=== PATIENT | female | born 1965 | race Caucasian/White ===

== ENCOUNTER 2017-11-16 13:07 | Emergency (ER) | payer OTHER, MEDICAID, SELFPAY ==
[2017-11-16 13:21] VITALS: BP 151/90; PULSE 72; RESP 16; TEMP 36.3; O2SAT 97; BMI 32.3
--- NOTE | 2017-11-16 15:14 | ED.URI ---
HPI - URI/Sore Throat <SATNAM Obrien - Last Filed: 11/16/17 22:08> General Chief Complaint: Upper Respiratory Symptoms Stated Complaint: SICK 3 DAYS, SORE THROAT AND BODY Time Seen by Provider: 11/16/17 15:14 Source: patient Mode of arrival: ambulatory Limitations: no limitations History of Present Illness HPI Narrative: 52-year-old female here for complaint of having generalized malaise for the last week with sinus pain and pressure. She states that she feels like she has a sinus infection. She denies any fevers or chills. Positive p.o. intake. She reports having greenish nasal discharge. She denies any other concerns at this point. No cough. She has been using her currently prescribed pain management regimen as needed for any discomfort. She reports she has a history of having sinus fractures in the past and that her velasquez or symptom to when that she has had before. MD Complaint: sinus pain Related Data Previous Rx's Medication Instructions Recorded levofloxacin 500 mg PO DAILY #7 tab 11/16/17 Allergies Allergy/AdvReac Type Severity Reaction Status Date / Time latex Allergy Severe Anaphylaxis Verified 11/16/17 13:24 codeine AdvReac Intermediate Vomiting Verified 11/16/17 13:24 doxycycline AdvReac Mild Vomiting Verified 11/16/17 13:24 erythromycin base AdvReac Mild Vomiting Verified 11/16/17 13:24 Penicillins AdvReac Mild Rash Verified 11/16/17 13:24 Review of Systems <SATNAM Obrien - Last Filed: 11/16/17 22:08> Constitutional Reports malaise Eyes Denies change in vision, Denies eye discharge, Denies irritation and Denies loss of vision ENT Ears, Nose, Mouth, and Throat: Reports nasal congestion and Reports sore throat Cardiovascular Denies chest pain, Denies irregular heart rhythm, Denies lightheadedness, Denies palpitations, Denies dyspnea, Denies dyspnea on exertion and Denies orthopnea Respiratory Denies cough, Denies dyspnea, Denies dyspnea on exertion and Denies wheezing Gastrointestinal Gastrointestinal: Denies abdominal pain, Denies change in bowel habits, Denies diarrhea, Denies nausea and Denies vomiting Genitourinary Denies hematuria, Denies flank pain, Denies urinary incontinence and Denies urinary urgency Musculoskeletal Denies back pain, Denies muscle weakness, Denies numbness and Denies tingling Integumentary/Breasts Denies pruritus, Denies erythema, Denies rash and Denies wounds Neurologic Denies confusion, Denies loss of vision, Denies numbness and Denies tingling Psychiatric Denies anxiety, Denies confusion, Denies depression, Denies homicidal ideation and Denies suicidal ideation Endocrine Denies palpitations Hematologic/Lymphatic Denies easy bruising Allergic/Immunologic Denies wheezing Exam <SATNAM Obrien - Last Filed: 11/16/17 22:08> Initial Vital Signs Initial Vital Signs: Vital Signs Temperature 97.3 F L 11/16/17 13:21 Pulse Rate 72 11/16/17 13:21 Respiratory Rate 16 11/16/17 13:21 Blood Pressure 151/90 H 11/16/17 13:21 Pulse Oximetry 97 11/16/17 13:21 Const General: cooperative and well developed Nutritional Appearance: well nourished Orientation: alert, awake, oriented x3 and not confused HENMT Nose: external nose normal Face and sinus: sinus tenderness maxillary Mouth: oral mucosae normal, oropharynx normal and moist mucous membranes Eyes Conjunctivae: conjunctivae normal Sclera: sclerae normal Pupils: PERRL EOM: EOM intact bilaterally Resp Effort & Inspection: normal respiratory effort, able to speak in complete sentences, no respiratory distress and no use of accessory muscles Auscultation: clear to auscultation bilaterally, no rales, no rhonchi and no wheezes Cardio Rate: regular rate Rhythm: regular rhythm Heart Sounds: no click, no gallops, no murmurs and no rubs Pulses: normal peripheral pulses Skin General: no rashes or lesions noted, No jaundice and No petechiae Neuro General: alert, oriented x3, gait normal and no focal motor deficits Speech: speech normal <Darwin Ling MD - Last Filed: 11/19/17 08:38> Initial Vital Signs Initial Vital Signs: Vital Signs Temperature 97.3 F L 11/16/17 13:21 Pulse Rate 72 11/16/17 13:21 Respiratory Rate 16 11/16/17 13:21 Blood Pressure 151/90 H 11/16/17 13:21 Pulse Oximetry 97 11/16/17 13:21 Course <SATNAM Obrien - Last Filed: 11/16/17 22:08> Vital Signs - 8 hr 11/16/17 15:38 Pulse Rate 65 Respiratory Rate 16 Blood Pressure 152/92 H Pulse Oximetry 98 <Darwin Ling MD - Last Filed: 11/19/17 08:38> Vital Signs - 8 hr 11/16/17 15:38 Pulse Rate 65 Respiratory Rate 16 Blood Pressure 152/92 H Pulse Oximetry 98 MDM - URI/Sore Throat <SATNAM Obrien - Last Filed: 11/16/17 22:08> [facility] Narrative Medical decision making narrative: Will treat for sinus infection with Levaquin as she has doxycycline and penicillin allergy. Tylenol as needed for any discomfort. Plenty of fluid and rest. Saline irrigation and nasal passages to help with congestion follow up with primary care provider in the next few days. For any worsening symptoms return emergency room. Discharge Plan Departure Patient Disposition: Home, Self-Care Clinical Impression: Sinusitis Discharge Date/Time: 11/16/17 15:42 Interventions: ED Discharge Assessment Last Done: 11/16/17 15:38 Instructions: DI for Sinusitis Activity Restrictions/Additional Instructions: Signs and symptoms presents as acute sinusitis. Use [id number] Tylenol as needed for any discomfort. Plenty of fluids and rest. Saline irrigation and nasal passages to help with congestion. Urine prescribed antibiotic called Levaquin use as directed. Follow up with her primary care provider next few days for re-evaluation. Return emergency room for any worsening symptoms. Prescriptions: New levofloxacin 500 mg tablet 500 mg PO DAILY Qty: 7 RF: 0 Referrals: Mami Ro [Primary Care Provider] - Stand Alone Forms: Work/School Restrictions <Darwin Ling MD - Last Filed: 11/19/17 08:38> Sign Out Provider Sign Out Attestation: The PA/MEDICAL HEALTH RESEARCHER functioned independently for the care of this pt, I was available, but not asked to participate in care. I am unable to determine appropriateness of management without personally examining the pt.
[2017-11-16 15:38] VITALS: BP 152/92; PULSE 65; RESP 16; O2SAT 98
== END 2017-11-16 15:42 | disposition home or self-care (01) ==
PROVIDERS: Emergency Provider Nurse Practitioner Family; PCP Internal Medicine
DX: J01.90 Acute sinusitis, unspecified (principal)
CPT/HCPCS: 99282

== ENCOUNTER 2019-01-10 11:57 | Emergency (ER) | payer OTHER, MEDICAID, SELFPAY ==
[2019-01-10 12:05] VITALS: BP 128/75; PULSE 75; RESP 16; TEMP 37; O2SAT 98
--- NOTE | 2019-01-10 12:14 | PC.NURSE ---
Addendum entered by Yoly Gray R.N. 01/10/19 12:15: wrong patient Original Note: pt ambulating to bathroom
[2019-01-10 12:24] LABS: Add Manual Diff / Slide Review NO; Basophils Absolute Auto 0 /uL (0-100); Basophils Percent Auto 0.3 % (0-2); Eosinophils Absolute Auto 100 /uL (0-450); Hematocrit 42.2 % (36-46); Hemoglobin 14.3 g/dL (12.0-16.0); Lymphocytes Absolute Auto 2200 /uL (1100-4500); Lymphocytes Percent Auto 49.6 % (25-40); Mean Corpuscular HGB Conc 33.8 % (30-36); Mean Corpuscular Volume 94.5 fL (80-100); Monocytes Absolute Auto 700 /uL (0-900); Monocytes Percent Auto 16.2 % (3-14); Neutrophils Absolute Auto 1400 /uL (1500-7000); Neutrophils Percent Auto 30.9 % (50-75); Platelet Count 181 X10^3/uL (150-400); Red Blood Cell Count 4.47 X10^6/uL (4.0-5.2); White Blood Cell Count 4.4 X10^3/uL (4.5-11.0)
[2019-01-10] MEDS: SODIUM CHLORIDE 0.9% 500 ML 1000 ML IV (12:30)
[2019-01-10 12:44] LABS: Alanine Aminotransferase 21 IU/L (9-52); Albumin 3.8 g/dL (3.5-5.0); Albumin Globulin Ratio 1.1 (1.0-2.8); Alkaline Phosphatase 57 U/L (38-126); Aspartate Aminotransferase 32 IU/L (14-36); BUN Creatinine Ratio 24.4 (6-22); Bilirubin Total 0.5 mg/dL (0.2-1.3); Blood Urea Nitrogen 22 mg/dL (7-17); Calcium 9.3 mg/dL (8.4-10.2); Carbon Dioxide 30 mmol/L (22-32); Chloride 102 mmol/L (98-107); Estimated Glomerular Filt Rate > 60.0 mL/min (>60); Globulin 3.5 g/dL (1.7-4.1); Glucose 104 mg/dL (70-100); HEMOLYSIS 16 (0-50); Potassium 3.9 mmol/L (3.4-5.1); Sodium 139 mmol/L (137-145); Total Protein 7.3 g/dL (6.3-8.2)
[2019-01-10 14:36] VITALS: BP 120/67; PULSE 65; RESP 16; O2SAT 100
--- NOTE | 2019-01-10 15:09 | ED_ITS ---
HPI - Nausea/Vomiting/Diarrhea <SATNAM Joyce - Last Filed: 01/10/19 22:48> General Chief complaint: Nausea/Vomiting/Diarrhea Stated complaint: Nausea, Low blood sugar Time Seen by Provider: 01/10/19 12:05 Source: patient and EMS Mode of arrival: Ambulatory Limitations: no limitations History of Present Illness HPI Narrative: This is a 53-year-old female, nonsmoker, who presents to ED with [facility] with hypoglycemic symptoms and the initial blood sugar of 60 mg/dL at home. Patient denies history of diabetes or being on antidiabetic medication, changes in medications, or recent illness. Patient reports she has been having frequent shakiness for a month and had purchased a blood sugar monitor and has been monitoring frequently. She actually has an appointment with her primary care physician next week to discuss about this. Patient reports her blood sugar has been running in 60-100 and has hypoglycemic symptoms such as nausea, feeling dizzy, shaky around when her blood sugar is in 70 mg/dL. Patient was given oral dextrose and IV Zofran prior arriving to ED by medics. Patient reports her symptoms all resolved at this time. She reports is currently under high stress and has not been eating well. Patient reports last meal was previous night at 4:00 p.m. and her symptoms started at 8:30 a.m. this morning. Related Data Home Medications Medication Instructions Recorded Confirmed cetirizine 10 mg PO DAILY 01/10/19 01/10/19 citalopram 40 mg PO DAILY 01/10/19 01/10/19 diazepam 5 mg PO DIRECTED 01/10/19 divalproex PO 01/10/19 epinephrine 0.3 mg IM PRN PRN 01/10/19 01/10/19 hydrocodone-acetaminophen 1 tab PO Q6H PRN 01/10/19 01/10/19 pantoprazole 40 mg PO DAILY 01/10/19 01/10/19 tramadol 50 mg PO TID PRN 01/10/19 01/10/19 Allergies Allergy/AdvReac Type Severity Reaction Status Date / Time latex Allergy Severe Anaphylaxis Verified 11/16/17 13:24 codeine AdvReac Intermediate Vomiting Verified 11/16/17 13:24 doxycycline AdvReac Mild Vomiting Verified 11/16/17 13:24 erythromycin base AdvReac Mild Vomiting Verified 11/16/17 13:24 Penicillins AdvReac Mild Rash Verified 11/16/17 13:24 Review of Systems <SATNAM Joyce - Last Filed: 01/10/19 22:48> Review of Systems Narrative: General: Denies fever, chills, fatigue, malaise, sweats. HEENT: Denies sinus pain, ear pain, sore throat, difficulty swallowing, dizziness. Respiratory: Denies dyspnea, cough, wheezing, hemoptysis, sputum. Cardiovascular: Denies chest pain, palpitations, orthopnea, edema. Gastrointestinal: Resolved nausea. Denies vomiting, abdominal pain, diarrhea, constipation, melena. : Denies dysuria, frequency, incontinence, hematuria, urinary retention. Musculoskeletal: Denies weakness, joint pain or bony pain. Skin: Denies rash, skin lesions, or other. Neurologic: Denies weakness, headache, numbness, change in speech, confusion, seizures, incoordination. Psychiatric: No concerning psychosocial issues. 12-point review of systems is negative except for those stated above. PFSH <SATNAM Joyce - Last Filed: 01/10/19 22:48> Medical History Asthma (Acute) Bipolar disorder (Acute) Fibromyalgia (Acute) Social History Smoking Status: Never smoker Social History Smoking Status: Never smoker Exam <SATNAM Joyce - Last Filed: 01/10/19 22:48> Narrative Exam Narrative: General appearance: well developed, well nourished, in no acute distress. Head: normocephalic, atraumatic, no scalp lesions, non-tender. Eye: pupil equal, round. EOMI. Nose: nares patent. Oral: mucosa moist. Neck/Thyroid: neck supple, full range of motion, no visible masses. Skin: no suspicious rashes, lesions over visible areas. Warm and dry. Heart: no clubbing, no cyanosis, no edema. Lungs: Breathing even and unlabored. No stridor. No accessory muscles used. Chest: normal shape and expansion. Abdomen: non-obese, non-distended. Neurologic: alert and oriented. Cognitive exam, BLOOD BANK TECHNOLOGIST and PNS grossly intact on informal exam. Psych: good eye contact, normal affect. Initial Vital Signs Initial Vital Signs: Vital Signs Temperature 98.6 F 01/10/19 12:05 Pulse Rate 75 01/10/19 12:05 Respiratory Rate 16 01/10/19 12:05 Blood Pressure 128/75 01/10/19 12:05 Pulse Oximetry 98 01/10/19 12:05 <Darrell Bearden DO - Last Filed: 01/18/19 00:05> Initial Vital Signs Initial Vital Signs: Vital Signs Temperature 98.6 F 01/10/19 12:05 Pulse Rate 75 01/10/19 12:05 Respiratory Rate 16 01/10/19 12:05 Blood Pressure 128/75 01/10/19 12:05 Pulse Oximetry 98 01/10/19 12:05 Scores <SATNAM Joyce - Last Filed: 01/10/19 22:48> GCS Rasheed coma scale eye opening: Spontaneous Rasheed coma scale verbal response: Orientated Bruin coma scale motor response: Obey commands Bruin coma scale total score: 15 Course <SATNAM Joyce - Last Filed: 01/10/19 22:48> Orders Ordered: Discontinued Medications Sodium Chloride (Normal Saline 0.9%) 500 mls @ 1,000 mls/hr IV BOLUS ONE Stop: 01/10/19 12:46 Last Infusion: 01/10/19 13:17 Dose: 0 mls/hr [facility] Admin: 01/10/19 12:30 Dose: 1,000 mls/hr Documented by: [facility] Vital Signs Vital signs: Vital Signs - 8 hr 01/10/19 14:36 Pulse Rate 65 Respiratory Rate 16 Blood Pressure [Right Arm] 120/67 Pulse Oximetry 100 <DO Ethan Redding Last Filed: 01/18/19 00:05> Orders Ordered: Discontinued Medications Sodium Chloride (Normal Saline 0.9%) 500 mls @ 1,000 mls/hr IV BOLUS ONE Stop: 01/10/19 12:46 Last Infusion: 01/10/19 13:17 Dose: 0 mls/hr [facility] Admin: 01/10/19 12:30 Dose: 1,000 mls/hr Documented by: HFARRINGTO Vital Signs Vital signs: Vital Signs - 8 hr 01/10/19 14:36 Pulse Rate 65 Respiratory Rate 16 Blood Pressure [Right Arm] 120/67 Pulse Oximetry 100 MDM - Nausea/Vomiting/Diarrhea <Iftikhar Luis Enrique-YASSINE AquinoP - Last Filed: 01/10/19 22:48> Differential Diagnosis Differential diagnosis: Likely dehydration and other (Hypoglycemia) Medical Records Attestation: I reviewed the patient's medical records. Lab Data Attestation: I reviewed the patient's lab results. Result diagrams: 01/10/19 11:45 01/10/19 11:45 Labs: Lab Results 01/10/19 01/10/19 Range/Units 11:45 11:45 WBC 4.4 L (4.5-11.0) X10^3/uL RBC 4.47 (4.0-5.2) X10^6/uL Hgb 14.3 (12.0-16.0) g/dL Hct 42.2 (36-46) % MCV 94.5 (80-100) fL MCH 32.0 (26-34) PG MCHC 33.8 (30-36) % RDW 15.0 H (11.6-14.8) % Plt Count 181 (150-400) X10^3/uL Neut % (Auto) 30.9 L (50-75) % Lymph % (Auto) 49.6 H (25-40) % Tyrrell % (Auto) 16.2 H (3-14) % Eos % (Auto) 3.0 (2-4) % Baso % (Auto) 0.3 (0-2) % Neut # (Auto) 1400 L (9846-0320) /uL Lymph # (Auto) 2200 (6851-7481) /uL Tyrrell # (Auto) 700 (0-900) /uL Eos # (Auto) 100 (0-450) /uL Baso # (Auto) 0 (0-100) /uL Sodium 139 (137-145) mmol/L Potassium 3.9 (3.4-5.1) mmol/L Chloride 102 (98-107) mmol/L Carbon Dioxide 30 (22-32) mmol/L BUN 22 H (7-17) mg/dL Creatinine 0.90 (0.52-1.04) mg/dL Estimated GFR > 60.0 (>60) mL/min BUN/Creatinine Ratio 24.4 H (6-22) Glucose 104 H (70-100) mg/dL Calcium 9.3 (8.4-10.2) mg/dL Total Bilirubin 0.5 (0.2-1.3) mg/dL AST 32 (14-36) IU/L ALT 21 (9-52) IU/L Alkaline Phosphatase 57 (38-126) U/L Total Protein 7.3 (6.3-8.2) g/dL Albumin 3.8 (3.5-5.0) g/dL Globulin 3.5 (1.7-4.1) g/dL Albumin/Globulin Ratio 1.1 (1.0-2.8) Point of Care Testing Glucose POC 107 Urine Dip Bedside Urine Glucose 100 mg/dl Bedside Urine Bilirubin - Negative Bedside Urine Ketone +/- 5 Urine Specific [place] 1.020 Bedside Urine Occult Blood - Negative Bedside Urine pH 6.0 Bedside Urine Protein +/- 15 Bedside Urine Urobilinogen 1+ 2mg Bedside Urine Nitrite - Negative Bedside Urine Leukocytes - Negative Esterase ECG Data Attestation: I personally reviewed and interpreted this ECG as follows: Prior ECG tracings: not available for review Interpretation: Sinus Rhythm rate at 70. Low QRS voltage in precordial leads. Nonspecific ST and T-wave abnormality MDM Narrative Medical decision making narrative: This is a 53-year-old female who was brought in by [facility] paramedics with symptoms of hypoglycemia. Patient had used her home glucose monitor and fingerstick glucose as 60 mg/dL. Patient reports unintentional intermittent fasting for greater than 16 hours since last night when she had symptoms of shakiness, nausea and vomiting. Patient does not have known history of diabetes or hyperglycemia. She denies recent illness. She denies recent changes in her medications. She has history of bipolar and fibromyalgia and she is on several medications for these. She reports last 1 month or so she has been having hypoglycemic symptoms such as shakiness which triggered her to purchase a glucometer. She has a follow-up appointment with her primary care physician next week to discuss this and she has been keeping a log book for glucose. Patient has been tolerating p.o. foods and fluids after Zofran for nausea and she was able to keep her blood sugar >100 mg/dL and symptoms free. BUN was mildly elevated and patient was medicated with 1 L of normal saline while in ED. Patient did not have any leukocytosis and otherwise lab tests were unremarkable. Urine test did not exhibit for an infection. Patient advised to check her blood glucose if she feels hypoglycemic symptoms and have orange juice or juice and added sugar for quick fix for hyperglycemia. Then, added complex carbohydrate such as crackers, milk, cheese to keep glucose prolonged time and patient verbalized the understanding. Patient advised to keep her appointment with primary care physician as scheduled and return precautions were discussed with the patient and verbalized understand. Patient advised to have frequent small snacks and to avoid prolonged fasting. Patient agrees with treatment plan. <Darrell Bearden, - Last Filed: 01/18/19 00:05> Lab Data Labs: Lab Results 01/10/19 01/10/19 Range/Units 11:45 11:45 WBC 4.4 L (4.5-11.0) X10^3/uL RBC 4.47 (4.0-5.2) X10^6/uL Hgb 14.3 (12.0-16.0) g/dL Hct 42.2 (36-46) % MCV 94.5 (80-100) fL MCH 32.0 (26-34) PG MCHC 33.8 (30-36) % RDW 15.0 H (11.6-14.8) % Plt Count 181 (150-400) X10^3/uL Neut % (Auto) 30.9 L (50-75) % Lymph % (Auto) 49.6 H (25-40) % Tyrrell % (Auto) 16.2 H (3-14) % Eos % (Auto) 3.0 (2-4) % Baso % (Auto) 0.3 (0-2) % Neut # (Auto) 1400 L (6239-1760) /uL Lymph # (Auto) 2200 (5223-6530) /uL Tyrrell # (Auto) 700 (0-900) /uL Eos # (Auto) 100 (0-450) /uL Baso # (Auto) 0 (0-100) /uL Sodium 139 (137-145) mmol/L Potassium 3.9 (3.4-5.1) mmol/L Chloride 102 (98-107) mmol/L Carbon Dioxide 30 (22-32) mmol/L BUN 22 H (7-17) mg/dL Creatinine 0.90 (0.52-1.04) mg/dL Estimated GFR > 60.0 (>60) mL/min BUN/Creatinine Ratio 24.4 H (6-22) Glucose 104 H (70-100) mg/dL Calcium 9.3 (8.4-10.2) mg/dL Total Bilirubin 0.5 (0.2-1.3) mg/dL AST 32 (14-36) IU/L ALT 21 (9-52) IU/L Alkaline Phosphatase 57 (38-126) U/L Total Protein 7.3 (6.3-8.2) g/dL Albumin 3.8 (3.5-5.0) g/dL Globulin 3.5 (1.7-4.1) g/dL Albumin/Globulin Ratio 1.1 (1.0-2.8) Point of Care Testing Glucose POC 107 Urine Dip Bedside Urine Glucose 100 mg/dl Bedside Urine Bilirubin - Negative Bedside Urine Ketone +/- 5 Urine Specific [place] 1.020 Bedside Urine Occult Blood - Negative Bedside Urine pH 6.0 Bedside Urine Protein +/- 15 Bedside Urine Urobilinogen 1+ 2mg Bedside Urine Nitrite - Negative Bedside Urine Leukocytes - Negative Esterase Discharge Plan Departure Patient Disposition: Home Clinical Impression: Hypoglycemia Discharge Date/Time: 01/10/19 15:15 Instructions: DI for Hypoglycemia Activity Restrictions/Additional Instructions: You have been diagnosed with [hypoglycemia. Your initial blood glucose by EMS was 60 mg/dL with a hypoglycemic symptoms you had experienced. The lab tests today were unremarkable. Please have something to snack readily available with the you when you have hypoglycemic symptoms. This might have happened due to prolonged intermittent fasting for about 16 hours plus]. What to do: *Take your medications as directed. There is no new medications to go home with today. *Follow up with your primary care provider in 2-3 days, call for an appointment with the glucose monitor log at home. Let them know you were seen in the ED and that we asked you to be seen in follow up. *Return to ED if you have any new, worsening, or concerning symptoms, such as [chest pain, breathing difficulty, unable to tolerate fluids, fever, dizziness, or any acute concerns]. Prescriptions: No Action citalopram 40 mg tablet 40 mg PO DAILY RF: 0 cetirizine 10 mg tablet 10 mg PO DAILY RF: 0 hydrocodone-acetaminophen 5-325 mg tablet 1 tab PO Q6H PRN (Reason: pain) RF: 0 tramadol 50 mg tablet 50 mg PO TID PRN (Reason: pain) RF: 0 pantoprazole 40 mg tablet,delayed release (DR/EC) 40 mg PO DAILY RF: 0 divalproex 500 mg tablet extended release 24 hr PO RF: 0 epinephrine 0.3 mg/0.3 mL auto-injector 0.3 mg IM PRN PRN (Reason: Allergic Reaction) RF: 0 diazepam 5 mg tablet 5 mg PO DIRECTED RF: 0 Referrals: Mami Ro [Primary Care Provider] - <Darrell Bearden DO - Last Filed: 01/18/19 00:05> Sign Out Provider Sign Out Attestation: I was available for consultation during this patient's emergency department encounter
== END 2019-01-10 15:15 | disposition home or self-care (01) ==
PROVIDERS: Emergency Provider Nurse Practitioner Family; PCP Internal Medicine
DX: E16.2 Hypoglycemia, unspecified (principal)
CPT/HCPCS: 80053; 81003; 82962; 85025; 93005; 93010; 96360; 99283; 99284

== ENCOUNTER 2019-02-14 06:23 | Inpatient (IN) | payer OTHER, MEDICAID, SELFPAY ==
[2019-02-14] VITALS (11 sets, daily range): BP systolic 133–155; BP diastolic 71–86; PULSE 64–91; RESP 15–20; TEMP 36.4–37.3; O2SAT 95–998; BMI 31.8
--- NOTE | 2019-02-14 06:39 | ED_ITS ---
HPI - Abdominal Pain <Pauline Sana, DO - Last Filed: 02/20/19 07:11> General Chief Complaint: Abdominal Pain Stated Complaint: right side abdomen pain up into chest Time Seen by Provider: 02/14/19 06:34 Source: patient Mode of arrival: Ambulatory Limitations: no limitations History of Present Illness HPI narrative: Patient is a 53-year-old female who presents with right upper quadrant pain ongoing for the last 36 hours. She says it has progressively gotten worse he finally just told her about it. She has been nauseous no vomiting. She tried to eat a handful of Cheetos at 4:00 a.m. and that seemed to have made it worse. She denies any radiating pain there are she denies chest pain or shortness of breath. She has been taking hydrocodone and tramadol at home for pain but it has not been helping. MD complaint: abdominal pain Onset (ago): hour(s) (36) Pain Consistency: intermittent Location: RUQ Severity: severe Quality: stabbing Radiation: none Migration to: no migration Relieving factors: nothing Exacerbating factors: nothing Related Data Home Medications Medication Instructions Recorded Confirmed cetirizine 10 mg PO DAILY 01/10/19 02/14/19 citalopram 40 mg PO QPM 01/10/19 02/14/19 diazepam 5 mg PO BID PRN 01/10/19 02/14/19 divalproex 2,000 mg PO QPM 01/10/19 02/14/19 epinephrine 0.3 mg IM PRN PRN 01/10/19 02/14/19 pantoprazole 40 mg PO DAILY 01/10/19 02/14/19 tramadol 50 mg PO TID PRN 01/10/19 02/14/19 lisinopril 10 mg PO QPM 02/14/19 02/14/19 naproxen 500 mg PO BID PRN 02/14/19 02/14/19 potassium chloride 10 meq PO DAILY 02/14/19 02/14/19 simvastatin 5 mg PO QPM 02/14/19 02/14/19 Previous Rx's Medication Instructions Recorded hydrocodone-acetaminophen 1 tab PO BID PRN #7 tab 02/16/19 ondansetron 4 mg PO Q8H PRN #10 tab 02/16/19 Allergies Allergy/AdvReac Type Severity Reaction Status Date / Time latex Allergy Severe Anaphylaxis Verified 11/16/17 13:24 codeine AdvReac Intermediate Vomiting Verified 11/16/17 13:24 doxycycline AdvReac Mild Vomiting Verified 11/16/17 13:24 erythromycin base AdvReac Mild Vomiting Verified 11/16/17 13:24 Penicillins AdvReac Mild Rash Verified 11/16/17 13:24 Review of Systems <Pauline Hood DO - Last Filed: 02/20/19 07:11> Review of Systems Narrative: GENERAL: Denies chills, fatigue, malaise, fever, sweats, travel HEENT: Denies sinus pain, ear pain, sore throat, difficulty swallowing, neck pain RESPIRATORY: Denies dyspnea, cough, wheezing, hemoptysis, sputum. CARDIOVASCULAR: Denies chest pain, palpitations, orthopnea, edema GASTROINTESTINAL: See HPI : Denies dysuria, frequency, incontinence, hematuria, urinary retention, flank pain. MUSCULOSKELETAL: Denies weakness, joint pain, or bony pain SKIN: No rash, no erythema, no pruritus NEUROLOGIC: Denies weakness, dizziness, headache, numbness, change in speech, confusion PSYCHIATRIC: No concerning psychosocial issues. 12 point review of systems is negative except for those stated above and HPI Patient History <Pauline Hood DO - Last Filed: 02/20/19 07:11> Medical History (Updated 02/14/19 @ 14:28 by Edith Costa DO) Anaphylaxis (Acute) Asthma (Acute) Bipolar disorder (Acute) Fibromyalgia (Acute) GERD (gastroesophageal reflux disease) (Acute) Gestational diabetes (Acute) Hyperlipidemia (Acute) Hypertension (Acute) Hypoglycemia (Acute) Hypokalemia (Acute) Panic attacks (Acute) Seasonal allergies (Acute) Surgical History (Updated 02/14/19 @ 14:24 by Edith Costa DO) H/O rhinoplasty (Acute) H/O: hysterectomy (Acute) History of lumpectomy of right breast (Acute) Hx of tonsillectomy (Acute) S/P ACL repair (Acute) Family History (Updated 02/14/19 @ 14:25 by Edith Costa DO) Mother Aspiration pneumonia Throat cancer Father Congestive heart failure Social History household members: spouse and children Smoking Status: Never smoker alcohol intake: current alcohol intake frequency: other Substance Use Type: does not use Exam <Pauline Hood DO - Last Filed: 02/20/19 07:11> Initial Vital Signs Initial Vital Signs: Vital Signs Temperature 99.2 F 02/14/19 06:37 Pulse Rate 86 02/14/19 06:37 Respiratory Rate 20 02/14/19 06:37 Blood Pressure 146/81 H 02/14/19 06:37 Pulse Oximetry 98 02/14/19 06:37 GENERAL: Middle-aged female appears in moderate distress HEENT: Head atraumatic,EOMI, pupils reactive, face symmetric, moist mucous membranes CARDIOVASCULAR: Regular rate and rhythm without murmurs, rubs or gallops. RESPIRATORY: Breath sounds equal bilaterally, no wheezes rales or rhonchi. ABDOMEN: Soft, tender right upper quadrant no guarding or rebound positive Reyes sign mild epigastric pain : No CVA tenderness EXTREMITIES: Normal range of motion, no clubbing or edema. Neurovascularly intact NEUROLOGICAL: Alert and oriented x4.Normal gait and speech. SKIN: Warm, dry, no laceration, no petechiae, no rashes or lesions. <Liyah Saul, DO - Last Filed: 02/14/19 18:11> Initial Vital Signs Initial Vital Signs: Vital Signs Temperature 99.2 F 02/14/19 06:37 Pulse Rate 86 02/14/19 06:37 Respiratory Rate 20 02/14/19 06:37 Blood Pressure 146/81 H 02/14/19 06:37 Pulse Oximetry 98 02/14/19 06:37 Course <Pauline Hood DO - Last Filed: 02/20/19 07:11> Orders Ordered: Discontinued Medications Acetaminophen (Tylenol) 650 mg PO Q6HR PRN PRN Reason: As Needed for Fever/Mild Pain Last Admin: 02/16/19 07:57 Dose: 650 mg Documented by: Admin: 02/15/19 23:32 Dose: 650 mg Documented by: Admin: 02/15/19 16:53 Dose: 650 mg Documented by: MOISE Hydrocodone Bitart/Acetaminophen ([place] 5/325) 0.5 tab PO NOW ONE Stop: 02/16/19 09:42 Last Admin: 02/16/19 10:01 Dose: 0.5 tab Documented by: NCANNIF Bisacodyl (Dulcolax) 10 mg PO DAILY PRN PRN Reason: Constipation Bisacodyl (Dulcolax) 10 mg [place] DAILY PRN PRN Reason: Constipation Citalopram Hydrobromide (Celexa) 40 mg PO QPM [facility] Last Admin: 02/15/19 16:54 Dose: 40 mg Documented by: MOISE Divalproex Sodium (Depakote) 2,000 mg PO QPM [facility] Last Admin: 02/15/19 16:53 Dose: 2,000 mg Documented by: MOISE Docusate Sodium (Colace) 100 mg PO BID PRN PRN Reason: Constipation Heparin Sodium (Porcine) (Heparin) 5,000 unit SUBCUT BID [facility] Last Admin: 02/14/19 10:35 Dose: Not Given Documented by: ROXANA Heparin Sodium (Porcine) (Heparin) 5,000 unit SUBCUT BID [facility] Last Admin: 02/16/19 10:10 Dose: Not Given Documented by: Admin: 02/15/19 20:48 Dose: 5,000 unit Documented by: Admin: 02/15/19 08:08 Dose: 5,000 unit Documented by: Admin: 02/14/19 20:50 Dose: 5,000 unit Documented by: MOISE Hydromorphone HCl (Dilaudid) 0.5 mg IV Q6H PRN PRN Reason: Pain, Severe (7-10) Hydromorphone HCl (Dilaudid) 0.5 mg IV Q6H PRN PRN Reason: Pain, Severe (7-10) Last Admin: 02/15/19 07:00 Dose: 0.5 mg Documented by: Admin: 02/14/19 23:42 Dose: 0.5 mg Documented by: LISA Sodium Chloride (Normal Saline 0.9%) 1,000 mls @ 150 mls/hr IV CONT [facility] Last Infusion: 02/14/19 08:37 Dose: 0 mls/hr Documented by: Infusion: 02/14/19 07:30 Dose: 999 mls/hr Documented by: Admin: 02/14/19 06:57 Dose: 150 mls/hr Documented by: LANE Sodium Chloride (Normal Saline 0.9%) 1,000 mls @ 100 mls/hr IV CONT [facility] Sodium Chloride (Normal Saline 0.9%) 1,000 mls @ 150 mls/hr IV CONT [facility] Last Admin: 02/14/19 11:10 Dose: 150 mls/hr Documented by: ILIABONKat Dextrose/Sodium Chloride (Dextrose 5%-0.9% Ns) 1,000 mls @ 150 mls/hr IV CONT [facility] Last Infusion: 02/15/19 09:02 Dose: 0 mls/hr Documented by: Admin: 02/15/19 03:12 Dose: 150 mls/hr Documented by: Infusion: 02/15/19 03:12 Dose: 150 mls/hr Documented by: Admin: 02/14/19 20:38 Dose: 150 mls/hr Documented by: Infusion: 02/14/19 20:33 Dose: 150 mls/hr Documented by: Admin: 02/14/19 13:52 Dose: 150 mls/hr Documented by: ILIABONKat Sodium Chloride (Normal Saline 0.9%) 1,000 mls @ 125 mls/hr IV CONT [facility] Last Infusion: 02/16/19 09:28 Dose: 0 mls/hr Documented by: Admin: 02/16/19 01:09 PDT Dose: 125 mls/hr Documented by: Infusion: 02/16/19 00:54 Dose: 125 mls/hr Documented by: Admin: 02/15/19 16:54 Dose: 125 mls/hr Documented by: Infusion: 02/15/19 16:54 Dose: 125 mls/hr Documented by: Admin: 02/15/19 09:01 Dose: 125 mls/hr Documented by: KENNA Ketorolac Tromethamine (Toradol) 30 mg IV NOW ONE Stop: 02/14/19 06:39 Last Admin: 02/14/19 06:57 Dose: 30 mg Documented by: LANE Lisinopril (Zestril) 10 mg PO QPM [facility] Last Admin: 02/15/19 16:53 Dose: 10 mg Documented by: MOISE Loratadine (Claritin) 10 mg PO DAILY [facility] Last Admin: 02/16/19 07:57 Dose: Not Given Documented by: Admin: 02/15/19 14:08 Dose: Not Given Documented by: ACHESS Magnesium Hydroxide (Milk Of Magnesia) 30 ml PO DAILY PRN PRN Reason: Constipation Magnesium Hydroxide (Milk Of Magnesia) 30 ml PO DAILY PRN PRN Reason: Constipation Melatonin (Melatonin) 3 mg PO BEDTIME [facility] Last Admin: 02/15/19 20:49 Dose: 3 mg Documented by: Admin: 02/15/19 00:05 Dose: 3 mg Documented by: LISA Morphine Sulfate (Morphine) 2 mg IV Q4HR PRN PRN Reason: Pain, Moderate (4-6) Morphine Sulfate (Morphine) 2 mg IV Q4HR PRN PRN Reason: Pain, Moderate (4-6) Last Admin: 02/16/19 04:17 Dose: 2 mg Documented by: Admin: 02/16/19 01:26 PST Dose: 2 mg Documented by: Admin: 02/15/19 16:52 Dose: 2 mg Documented by: Admin: 02/14/19 20:52 Dose: 2 mg Documented by: Admin: 02/14/19 17:07 Dose: 2 mg Documented by: Admin: 02/14/19 11:10 Dose: 2 mg Documented by: ROXANA Morphine Sulfate (Morphine) 2 mg IV NOW ONE Stop: 02/14/19 12:40 Last Admin: 02/14/19 12:44 Dose: 2 mg Documented by: ROXANA Morphine Sulfate (Morphine) 1 mg IV Q4HR PRN PRN Reason: Pain, Moderate (4-6) Last Admin: 02/15/19 20:48 Dose: 1 mg Documented by: Admin: 02/15/19 11:41 Dose: 1 mg Documented by: Admin: 02/14/19 19:37 Dose: 1 mg Documented by: MOISE Ondansetron HCl (Zofran) 4 mg IV NOW ONE Stop: 02/14/19 06:39 Last Admin: 02/14/19 06:57 Dose: 4 mg Documented by: LANE Ondansetron HCl (Zofran) 4 mg IV Q4HR PRN PRN Reason: Nausea And Vomiting Ondansetron HCl (Zofran) 4 mg IV Q4HR PRN PRN Reason: Nausea And Vomiting Last Admin: 02/16/19 08:55 Dose: 4 mg Documented by: Admin: 02/16/19 03:35 Dose: 4 mg Documented by: Admin: 02/15/19 16:52 Dose: 4 mg Documented by: Admin: 02/14/19 20:51 Dose: 4 mg Documented by: Admin: 02/14/19 15:42 Dose: 4 mg Documented by: MOISE Pantoprazole Sodium (Protonix) 40 mg IV DAILY [facility] Last Admin: 02/15/19 08:07 Dose: 40 mg Documented by: KENNA Pantoprazole Sodium (Protonix) 40 mg PO 0700 [facility] Last Admin: 02/16/19 04:16 Dose: 40 mg Documented by: Admin: 02/15/19 08:59 Dose: Not Given Documented by: KENNA Polyethylene Glycol (Miralax) 17 gm PO DAILY PRN PRN Reason: Constipation Simvastatin (Zocor) 5 mg PO QPM [facility] Last Admin: 02/15/19 16:55 Dose: 5 mg Documented by: MOISE Sodium Chloride (Normal Saline 0.9% Flush) 10 ml IV PRN PRN PRN Reason: Flush Last Admin: 02/15/19 16:58 Dose: 10 ml Documented by: Admin: 02/15/19 16:52 Dose: 10 ml Documented by: Admin: 02/15/19 08:07 Dose: 10 ml Documented by: Admin: 02/14/19 20:45 Dose: 10 ml Documented by: Admin: 02/14/19 18:44 Dose: 10 ml Documented by: MOISE Vital Signs Vital signs: Vital Signs - 8 hr 02/14/19 06:37 Temperature 99.2 F Pulse Rate 86 Respiratory Rate 20 Blood Pressure 146/81 H Pulse Oximetry 98 <Liyah Saul DO - Last Filed: 02/14/19 18:11> Orders Ordered: Discontinued Medications Acetaminophen (Tylenol) 650 mg PO Q6HR PRN PRN Reason: As Needed for Fever/Mild Pain Last Admin: 02/16/19 07:57 Dose: 650 mg Documented by: Admin: 02/15/19 23:32 Dose: 650 mg Documented by: Admin: 02/15/19 16:53 Dose: 650 mg Documented by: MOISE Hydrocodone Bitart/Acetaminophen ([place] 5/325) 0.5 tab PO NOW ONE Stop: 02/16/19 09:42 Last Admin: 02/16/19 10:01 Dose: 0.5 tab Documented by: KRISTINA Bisacodyl (Dulcolax) 10 mg PO DAILY PRN PRN Reason: Constipation Bisacodyl (Dulcolax) 10 mg [place] DAILY PRN PRN Reason: Constipation Citalopram Hydrobromide (Celexa) 40 mg PO QPM [facility] Last Admin: 02/15/19 16:54 Dose: 40 mg Documented by: MOISE Divalproex Sodium (Depakote) 2,000 mg PO QPM [facility] Last Admin: 02/15/19 16:53 Dose: 2,000 mg Documented by: MOISE Docusate Sodium (Colace) 100 mg PO BID PRN PRN Reason: Constipation Heparin Sodium (Porcine) (Heparin) 5,000 unit SUBCUT BID [facility] Last Admin: 02/14/19 10:35 Dose: Not Given Documented by: ROXANA Heparin Sodium (Porcine) (Heparin) 5,000 unit SUBCUT BID [facility] Last Admin: 02/16/19 10:10 Dose: Not Given Documented by: Admin: 02/15/19 20:48 Dose: 5,000 unit Documented by: Admin: 02/15/19 08:08 Dose: 5,000 unit Documented by: Admin: 02/14/19 20:50 Dose: 5,000 unit Documented by: MOISE Hydromorphone HCl (Dilaudid) 0.5 mg IV Q6H PRN PRN Reason: Pain, Severe (7-10) Hydromorphone HCl (Dilaudid) 0.5 mg IV Q6H PRN PRN Reason: Pain, Severe (7-10) Last Admin: 02/15/19 07:00 Dose: 0.5 mg Documented by: Admin: 02/14/19 23:42 Dose: 0.5 mg Documented by: LISA Sodium Chloride (Normal Saline 0.9%) 1,000 mls @ 150 mls/hr IV CONT [facility] Last Infusion: 02/14/19 08:37 Dose: 0 mls/hr Documented by: Infusion: 02/14/19 07:30 Dose: 999 mls/hr Documented by: Admin: 02/14/19 06:57 Dose: 150 mls/hr Documented by: LANE Sodium Chloride (Normal Saline 0.9%) 1,000 mls @ 100 mls/hr IV CONT [facility] Sodium Chloride (Normal Saline 0.9%) 1,000 mls @ 150 mls/hr IV CONT [facility] Last Admin: 02/14/19 11:10 Dose: 150 mls/hr Documented by: SPABONA Dextrose/Sodium Chloride (Dextrose 5%-0.9% Ns) 1,000 mls @ 150 mls/hr IV CONT [facility] Last Infusion: 02/15/19 09:02 Dose: 0 mls/hr Documented by: Admin: 02/15/19 03:12 Dose: 150 mls/hr Documented by: Infusion: 02/15/19 03:12 Dose: 150 mls/hr Documented by: Admin: 02/14/19 20:38 Dose: 150 mls/hr Documented by: Infusion: 02/14/19 20:33 Dose: 150 mls/hr Documented by: Admin: 02/14/19 13:52 Dose: 150 mls/hr Documented by: SPABONA Sodium Chloride (Normal Saline 0.9%) 1,000 mls @ 125 mls/hr IV CONT [facility] Last Infusion: 02/16/19 09:28 Dose: 0 mls/hr Documented by: Admin: 02/16/19 01:09 PDT Dose: 125 mls/hr Documented by: Infusion: 02/16/19 00:54 Dose: 125 mls/hr Documented by: Admin: 02/15/19 16:54 Dose: 125 mls/hr Documented by: Infusion: 02/15/19 16:54 Dose: 125 mls/hr Documented by: Admin: 02/15/19 09:01 Dose: 125 mls/hr Documented by: KENNA Ketorolac Tromethamine (Toradol) 30 mg IV NOW ONE Stop: 02/14/19 06:39 Last Admin: 02/14/19 06:57 Dose: 30 mg Documented by: LANE Lisinopril (Zestril) 10 mg PO QPM [facility] Last Admin: 02/15/19 16:53 Dose: 10 mg Documented by: MOISE Loratadine (Claritin) 10 mg PO DAILY [facility] Last Admin: 02/16/19 07:57 Dose: Not Given Documented by: Admin: 02/15/19 14:08 Dose: Not Given Documented by: ACHESS Magnesium Hydroxide (Milk Of Magnesia) 30 ml PO DAILY PRN PRN Reason: Constipation Magnesium Hydroxide (Milk Of Magnesia) 30 ml PO DAILY PRN PRN Reason: Constipation Melatonin (Melatonin) 3 mg PO BEDTIME [facility] Last Admin: 02/15/19 20:49 Dose: 3 mg Documented by: Admin: 02/15/19 00:05 Dose: 3 mg Documented by: LISA Morphine Sulfate (Morphine) 2 mg IV Q4HR PRN PRN Reason: Pain, Moderate (4-6) Morphine Sulfate (Morphine) 2 mg IV Q4HR PRN PRN Reason: Pain, Moderate (4-6) Last Admin: 02/16/19 04:17 Dose: 2 mg Documented by: Admin: 02/16/19 01:26 PST Dose: 2 mg Documented by: Admin: 02/15/19 16:52 Dose: 2 mg Documented by: Admin: 02/14/19 20:52 Dose: 2 mg Documented by: Admin: 02/14/19 17:07 Dose: 2 mg Documented by: Admin: 02/14/19 11:10 Dose: 2 mg Documented by: ROXANA Morphine Sulfate (Morphine) 2 mg IV NOW ONE Stop: 02/14/19 12:40 Last Admin: 02/14/19 12:44 Dose: 2 mg Documented by: ROXANA Morphine Sulfate (Morphine) 1 mg IV Q4HR PRN PRN Reason: Pain, Moderate (4-6) Last Admin: 02/15/19 20:48 Dose: 1 mg Documented by: Admin: 02/15/19 11:41 Dose: 1 mg Documented by: Admin: 02/14/19 19:37 Dose: 1 mg Documented by: MOISE Ondansetron HCl (Zofran) 4 mg IV NOW ONE Stop: 02/14/19 06:39 Last Admin: 02/14/19 06:57 Dose: 4 mg Documented by: LANE Ondansetron HCl (Zofran) 4 mg IV Q4HR PRN PRN Reason: Nausea And Vomiting Ondansetron HCl (Zofran) 4 mg IV Q4HR PRN PRN Reason: Nausea And Vomiting Last Admin: 02/16/19 08:55 Dose: 4 mg Documented by: Admin: 02/16/19 03:35 Dose: 4 mg Documented by: Admin: 02/15/19 16:52 Dose: 4 mg Documented by: Admin: 02/14/19 20:51 Dose: 4 mg Documented by: Admin: 02/14/19 15:42 Dose: 4 mg Documented by: MOISE Pantoprazole Sodium (Protonix) 40 mg IV DAILY [facility] Last Admin: 02/15/19 08:07 Dose: 40 mg Documented by: KENNA Pantoprazole Sodium (Protonix) 40 mg PO 0700 [facility] Last Admin: 02/16/19 04:16 Dose: 40 mg Documented by: Admin: 02/15/19 08:59 Dose: Not Given Documented by: KENNA Polyethylene Glycol (Miralax) 17 gm PO DAILY PRN PRN Reason: Constipation Simvastatin (Zocor) 5 mg PO QPM [facility] Last Admin: 02/15/19 16:55 Dose: 5 mg Documented by: MOISE Sodium Chloride (Normal Saline 0.9% Flush) 10 ml IV PRN PRN PRN Reason: Flush Last Admin: 02/15/19 16:58 Dose: 10 ml Documented by: Admin: 02/15/19 16:52 Dose: 10 ml Documented by: Admin: 02/15/19 08:07 Dose: 10 ml Documented by: Admin: 02/14/19 20:45 Dose: 10 ml Documented by: Admin: 02/14/19 18:44 Dose: 10 ml Documented by: MOISE Vital Signs Vital signs: Vital Signs - 8 hr 02/14/19 06:37 Temperature 99.2 F Pulse Rate 86 Respiratory Rate 20 Blood Pressure 146/81 H Pulse Oximetry 98 MDM - Abdominal Pain <Pauline Hood DO - Last Filed: 02/20/19 07:11> Lab Data Result diagrams: 02/16/19 04:58 02/15/19 05:08 Labs: Lab Results 02/14/19 02/14/19 02/14/19 Range/Units 06:50 06:50 06:50 WBC 9.1 (4.5-11.0) X10^3/uL RBC 4.38 (4.0-5.2) X10^6/uL Hgb 14.3 (12.0-16.0) g/dL Hct 42.7 (36-46) % MCV 97.3 (80-100) fL MCH 32.5 (26-34) PG MCHC 33.4 (30-36) % RDW 13.4 (11.6-14.8) % Plt Count 173 (150-400) X10^3/uL Neut % (Auto) 62.8 (50-75) % Lymph % (Auto) 23.5 L (25-40) % [place] % (Auto) 11.5 (3-14) % Eos % (Auto) 2.1 (2-4) % Baso % (Auto) 0.1 (0-2) % Neut # (Auto) 5700 (2563-9552) /uL Lymph # (Auto) 2100 (7380-6078) /uL [place] # (Auto) 1000 H (0-900) /uL Eos # (Auto) 200 (0-450) /uL Baso # (Auto) 0 (0-100) /uL Sodium 140 (137-145) mmol/L Potassium 4.0 (3.4-5.1) mmol/L Chloride 100 (98-107) mmol/L Carbon Dioxide 31 (22-32) mmol/L BUN 19 H (7-17) mg/dL Creatinine 0.80 (0.52-1.04) mg/dL Estimated GFR > 60.0 (>60) mL/min BUN/Creatinine Ratio 23.8 H (6-22) Glucose 86 (70-100) mg/dL Calcium 8.6 (8.4-10.2) mg/dL Magnesium 1.9 (1.6-2.3) mg/dL Total Bilirubin 0.7 (0.2-1.3) mg/dL AST 34 (14-36) IU/L ALT 14 (<35) IU/L Alkaline Phosphatase 52 (38-126) U/L Total Protein 7.1 (6.3-8.2) g/dL Albumin 3.8 (3.5-5.0) g/dL Globulin 3.3 (1.7-4.1) g/dL Albumin/Globulin Ratio 1.2 (1.0-2.8) Triglycerides 100 (35-150) mg/dL Cholesterol 195 (140-199) mg/dL LDL Cholesterol, Calc 112 H (<100) mg/dL HDL Cholesterol 63 H (40-60) mg/dL Lipase 1539 H (23-300) U/L ECG Data Attestation: I personally reviewed and interpreted this ECG as follows: Prior ECG tracings: available for review Interpretation: Normal sinus rhythm rate 82 p.r. interval [address] changes no T-wave inversions some mild artifact noted no changes from prior MDM Narrative Medical decision making narrative: Patient signed out to Dr. saul. Blood work ultrasound pending. <Liyah Saul, DO - Last Filed: 02/14/19 18:11> Lab Data Attestation: I reviewed the patient's lab results. Labs: Lab Results 02/14/19 02/14/19 02/14/19 Range/Units 06:50 06:50 06:50 WBC 9.1 (4.5-11.0) X10^3/uL RBC 4.38 (4.0-5.2) X10^6/uL Hgb 14.3 (12.0-16.0) g/dL Hct 42.7 (36-46) % MCV 97.3 (80-100) fL MCH 32.5 (26-34) PG MCHC 33.4 (30-36) % RDW 13.4 (11.6-14.8) % Plt Count 173 (150-400) X10^3/uL Neut % (Auto) 62.8 (50-75) % Lymph % (Auto) 23.5 L (25-40) % [place] % (Auto) 11.5 (3-14) % Eos % (Auto) 2.1 (2-4) % Baso % (Auto) 0.1 (0-2) % Neut # (Auto) 5700 (9069-5704) /uL Lymph # (Auto) 2100 (8753-7555) /uL [place] # (Auto) 1000 H (0-900) /uL Eos # (Auto) 200 (0-450) /uL Baso # (Auto) 0 (0-100) /uL Sodium 140 (137-145) mmol/L Potassium 4.0 (3.4-5.1) mmol/L Chloride 100 (98-107) mmol/L Carbon Dioxide 31 (22-32) mmol/L BUN 19 H (7-17) mg/dL Creatinine 0.80 (0.52-1.04) mg/dL Estimated GFR > 60.0 (>60) mL/min BUN/Creatinine Ratio 23.8 H (6-22) Glucose 86 (70-100) mg/dL Calcium 8.6 (8.4-10.2) mg/dL Magnesium 1.9 (1.6-2.3) mg/dL Total Bilirubin 0.7 (0.2-1.3) mg/dL AST 34 (14-36) IU/L ALT 14 (<35) IU/L Alkaline Phosphatase 52 (38-126) U/L Total Protein 7.1 (6.3-8.2) g/dL Albumin 3.8 (3.5-5.0) g/dL Globulin 3.3 (1.7-4.1) g/dL Albumin/Globulin Ratio 1.2 (1.0-2.8) Triglycerides 100 (35-150) mg/dL Cholesterol 195 (140-199) mg/dL LDL Cholesterol, Calc 112 H (<100) mg/dL HDL Cholesterol 63 H (40-60) mg/dL Lipase 1539 H (23-300) U/L Imaging Data US - abdomen: Radiologist's impression: [place] [address] Ultrasound Report Signed Patient: Marisol Bee LMR#: [id number] : 1965Acct:[id number] Age/Sex: 53 / FDate of Service: 02/14/19 Loc: ED Accession Number: [id number] Procedure: US abdomen limited Ordering Provider: Pauline Hood D.O. PROCEDURE: US ABDOMEN LIMITED INDICATIONS: ruq TECHNIQUE: Real-time scanning was performed of the abdominal and retroperitoneal organs, with image documentation. Suboptimal examination secondary to body habitus. COMPARISON: None. FINDINGS: Liver: Normal in size. Increased in echogenicity. Gallbladder: Nondilated. No stones or sludge. Normal gallbladder wall thickness. No pericholecystic fluid. Negative sonographic Reyes's sign. Biliary ducts: Intrahepatic bile ducts are non-dilated. Extrahepatic bile duct caliber measures 4 mm. Normal is 6-7 mm or less in diameter, or 10 mm or less post-cholecystectomy. Pancreas: Visualized portions of the pancreas are sonographically normal. Right kidney: No hydronephrosis. Miscellaneous: No free abdominal fluid. IMPRESSION: 1. Increased hepatic echogenicity most consistent with hepatic steatosis. Other forms of hepatocellular disease could have similar appearance. 2. No acute cholecystitis. No gallstones. Dictated by: Yariel Coleman M.D. on 02/14/2019 at 7:28 Approved by: Yariel Coleman M.D. on 02/14/2019 at 7:30 MDM Narrative Medical decision making narrative: Patient signed out to myself by Dr. Hood. Patient seen by myself, she has elevated lipase at 3:00 p.m., otherwise normal LFTs, electrolytes and creatinine are normal range with a BUN of 19. Leukocytosis, no anemia is noted. Platelets are normal. ultrasounds noted to have increased hepatic echogenicity consistent with hepatic steatosis although other forms of hepatocellular disease could cause similar changes. No acute cholecystitis, no gallstones. Intrahepatic bile ducts are nondilated and extrahepatic bile ducts measures 4 mm which is in a normal range. Patient states that she has had increased alcohol intake not daily but every 2 or 3 days probably 2-3 alcoholic drinks on those days. She states she has been under increased stress lately. Patient states she has not had pancreatitis in the past. She states that she is feeling better after the Toradol. Spoke with Dr. Costa, plan for admission. labs and imaging reviewed. Discharge Plan Departure Patient Disposition: Admitted As Inpatient Clinical Impression: Pancreatitis Qualifiers: Chronicity: acute Pancreatitis type: alcohol induced Acute pancreatitis complication: no infection or necrosis Qualified Code(s): K85.20 - Alcohol induced acute pancreatitis without necrosis or infection Discharge Date/Time: 02/14/19 09:18 Instructions: Eating a Diet Low in Saturated Fat, Trans Fat, and Cholesterol, Alcohol and Stress: There are Safer Ways to [place], Soft Diet, DI for Pancreatitis Referrals: Mami Ro [Primary Care Provider] - 1 Week Admit Date/Time: 02/14/19 08:17 Admit Provider: Edith Costa
[2019-02-14] MEDS: ONDANSETRON 4 MG/2 ML INJ IV ×3 (06:57→20:51)
[2019-02-14] MEDS: SODIUM CHLORIDE 0.9% 1,000 ML 150 ML IV ×2 (06:57→11:10)
[2019-02-14] MEDS: KETOROLAC 60 MG/2 ML VIAL 30 MG IV (06:57)
[2019-02-14 07:09] LABS: Add Manual Diff / Slide Review NO; Basophils Absolute Auto 0 /uL (0-100); Basophils Percent Auto 0.1 % (0-2); Eosinophils Absolute Auto 200 /uL (0-450); Eosinophils Percent Auto 2.1 % (2-4); Hematocrit 42.7 % (36-46); Hemoglobin 14.3 g/dL (12.0-16.0); Lymphocytes Absolute Auto 2100 /uL (1100-4500); Lymphocytes Percent Auto 23.5 % (25-40); Mean Corpuscular HGB Conc 33.4 % (30-36); Mean Corpuscular Hemoglobin 32.5 PG (26-34); Mean Corpuscular Volume 97.3 fL (80-100); Monocytes Absolute Auto 1000 /uL (0-900); Monocytes Percent Auto 11.5 % (3-14); Neutrophils Absolute Auto 5700 /uL (1500-7000); Neutrophils Percent Auto 62.8 % (50-75); Platelet Count 173 X10^3/uL (150-400); Red Blood Cell Count 4.38 X10^6/uL (4.0-5.2); Red Cell Distribution Width 13.4 % (11.6-14.8); White Blood Cell Count 9.1 X10^3/uL (4.5-11.0)
[2019-02-14 07:18] LABS: Alanine Aminotransferase 14 IU/L (<35); Albumin 3.8 g/dL (3.5-5.0); Albumin Globulin Ratio 1.2 (1.0-2.8); Alkaline Phosphatase 52 U/L (38-126); Aspartate Aminotransferase 34 IU/L (14-36); BUN Creatinine Ratio 23.8 (6-22); Bilirubin Total 0.7 mg/dL (0.2-1.3); Blood Urea Nitrogen 19 mg/dL (7-17); Calcium 8.6 mg/dL (8.4-10.2); Carbon Dioxide 31 mmol/L (22-32); Chloride 100 mmol/L (98-107); Estimated Glomerular Filt Rate > 60.0 mL/min (>60); Globulin 3.3 g/dL (1.7-4.1); Glucose 86 mg/dL (70-100); Lipase 1539 U/L (23-300); Sodium 140 mmol/L (137-145); Total Protein 7.1 g/dL (6.3-8.2)
[2019-02-14 07:20] LABS: HEMOLYSIS 61 (0-50)
[2019-02-14 08:38] LABS: Cholesterol 195 mg/dL (140-199); HDL Cholesterol 63 mg/dL (40-60); LDL Cholesterol Calculated 112 mg/dL (<100); Magnesium 1.9 mg/dL (1.6-2.3); Triglycerides 100 mg/dL (35-150)
--- NOTE | 2019-02-14 10:27 | PC.NURSE ---
Patient alert, oriented rates RUQ pain 6/10. Denies nausea. Oriented to call light and room.
[2019-02-14] MEDS: MORPHINE 2 MG/ML INJ IV ×4 (11:10→20:52)
--- NOTE | 2019-02-14 13:23 | P.HP_ITS ---
History of Present Illness History of Present Illness Date Patient Seen: 02/14/19 Chief complaint: right side abdomen pain up into chest Narrative: Marisol Bee is a 53-year-old female with a past medical history significant for hypertension, hyperlipidemia, GERD, gestational diabetes, bipolar disorder, depression, and anxiety with panic attacks who presented to the ED complaining of right upper quadrant abdominal pain. The patient reports that she has had right upper quadrant abdominal pain for approximately 36 hours. The pain radiated up to her chest and to her back. She has never had a pain like this before. She denies associated nausea, vomiting, fever, or chills. She does endorse decreased appetite. She has no other complaints and denies headache, chest pain, shortness of breath, dysuria, diarrhea or constipation. She has had no recent viral illness. She tried tramadol and Aleve without relief. She reports that the pain worsen with position changes and was better on her left side. She is currently going to EMT school and reports she has been under a high amount of stress. She does not normally consume alcohol. However, due to high amount of stress with school she has been drinking several times a week anywhere from 1-3 glasses of [employer] liquor. She has no other complaints. In the ED the patient the patient had normal CBC and BMP. She was found to have a lipase of 1539. Abdominal ultrasound performed did not demonstrate any acute hepatic or biliary pathology. The patient was admitted inpatient for further evaluation and treatment. PCP is Dr. Mami Ro Patient History Medical History (Updated 02/14/19 @ 14:28 by Edith Costa DO) Anaphylaxis (Acute) Asthma (Acute) Bipolar disorder (Acute) Fibromyalgia (Acute) GERD (gastroesophageal reflux disease) (Acute) Gestational diabetes (Acute) Hyperlipidemia (Acute) Hypertension (Acute) Hypoglycemia (Acute) Hypokalemia (Acute) Panic attacks (Acute) Seasonal allergies (Acute) Surgical History (Updated 02/14/19 @ 14:24 by Edith Costa DO) H/O rhinoplasty (Acute) H/O: hysterectomy (Acute) History of lumpectomy of right breast (Acute) Hx of tonsillectomy (Acute) S/P ACL repair (Acute) Family & Social History Family History (Updated 02/14/19 @ 14:25 by Edith Liseth Pamlico, DO) Mother Aspiration pneumonia Throat cancer Father Congestive heart failure Social History: household members spouse,children Prior Living Arrangements RV Safety & Behavioral: Feels Safe in Current Yes Environment Been Physically Hurt or No Threatened By a Person Suicidal Ideation Description None Suicide Plan Description No Plan Tobacco & Substance use: Smoking Status Never smoker alcohol intake current alcohol intake frequency 0-3 drinks per day Substance Use Type does not use The patient has been with her partner on and off for 30 years. She has 3 biological children who are all healthy. 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 Meds Home Medications and Allergies Home Medications Medication Instructions Recorded Confirmed Type cetirizine 10 mg PO DAILY 01/10/19 02/14/19 History citalopram 40 mg PO QPM 01/10/19 02/14/19 History diazepam 5 mg PO BID PRN 01/10/19 02/14/19 History divalproex 2,000 mg PO QPM 01/10/19 02/14/19 History epinephrine 0.3 mg IM PRN PRN 01/10/19 02/14/19 History pantoprazole 40 mg PO DAILY 01/10/19 02/14/19 History tramadol 50 mg PO TID PRN 01/10/19 02/14/19 History lisinopril 10 mg PO QPM 02/14/19 02/14/19 History naproxen 500 mg PO BID PRN 02/14/19 02/14/19 History potassium chloride 10 meq PO DAILY 02/14/19 02/14/19 History simvastatin 5 mg PO QPM 02/14/19 02/14/19 History Allergies Allergy/AdvReac Type Severity Reaction Status Date / Time latex Allergy Severe Anaphylaxis Verified 11/16/17 13:24 codeine AdvReac Intermediate Vomiting Verified 11/16/17 13:24 doxycycline AdvReac Mild Vomiting Verified 11/16/17 13:24 erythromycin base AdvReac Mild Vomiting Verified 11/16/17 13:24 Penicillins AdvReac Mild Rash Verified 11/16/17 13:24 Review of Systems Review of Systems Narrative: A 10 system comprehensive review of systems was conducted with the patient and found to be negative except as above in the History of Present Illness. Exam Vital Signs (past 8 hours): - 02/14/19 06:37 02/14/19 08:40 02/14/19 09:17 Temperature 99.2 F Pulse Rate 86 91 H 73 Respiratory Rate 20 16 16 Blood Pressure 146/81 H 133/71 Blood Pressure [Left Arm] 136/73 Pulse Oximetry 98 97 97 02/14/19 10:04 02/14/19 11:25 02/14/19 12:23 Temperature 97.6 F Pulse Rate 67 Respiratory Rate 16 Blood Pressure 135/75 Blood Pressure [Left Arm] Pulse Oximetry 98 97 98 02/14/19 12:28 Temperature 97.7 F Pulse Rate 71 Respiratory Rate 16 Blood Pressure 135/79 Blood Pressure [Left Arm] Pulse Oximetry 97 Oxygen Delivery Method Room Air Oxygen Flow Rate 0 Narrative Exam Narrative: General: Middle-aged female sitting in bed and in no acute distress, well- developed, well-nourished, appropriately interactive. HEENT: Normocephalic, atraumatic. External ears without defect. Pupils equal, round, and reactive to light. Anicteric sclerae, moist conjunctivae, and no lid lag. Oropharynx free of erythema and cobble stoning with moist mucosa. Neck: Supple with full range of motion. No lymphadenopathy or thyromegaly. Cardiovascular: Regular rate and rhythm without murmurs, rubs, or gallops appreciated. Pulmonary: Clear to auscultation bilaterally without crackles, wheezes, or rhonchi. Normal respiratory effort with no use of accessory muscles. Abdomen: Soft, bowel sounds present, minimal tenderness to palpation in epigastrium, nondistended. No hepatosplenomegaly or masses appreciated. Extremities: No clubbing, cyanosis, or edema. Skin: Normal temperature, turgor, and texture; no rash, ulcers, or subcutaneous nodules appreciated. Neurological: Cranial nerves grossly intact. Normal muscle strength, tone, and bulk. Reflexes, coordination, and sensory function within normal limits. No known gait impairment. Psychiatric: Normal mood and affect. Alert and oriented to person, place, and time. Objective Labs Result Diagrams: 02/14/19 06:50 02/14/19 06:50 Labs: Laboratory Results - last 24 hr 02/14/19 02/14/19 02/14/19 06:50 06:50 06:50 WBC 9.1 RBC 4.38 Hgb 14.3 Hct 42.7 MCV 97.3 MCH 32.5 MCHC 33.4 RDW 13.4 Plt Count 173 Neut % (Auto) 62.8 Lymph % (Auto) 23.5 L [place] % (Auto) 11.5 Eos % (Auto) 2.1 Baso % (Auto) 0.1 Neut # (Auto) 5700 Lymph # (Auto) 2100 [place] # (Auto) 1000 H Eos # (Auto) 200 Baso # (Auto) 0 Sodium 140 Potassium 4.0 Chloride 100 Carbon Dioxide 31 BUN 19 H Creatinine 0.80 Estimated GFR > 60.0 BUN/Creatinine Ratio 23.8 H Glucose 86 Calcium 8.6 Magnesium 1.9 Total Bilirubin 0.7 AST 34 ALT 14 Alkaline Phosphatase 52 Total Protein 7.1 Albumin 3.8 Globulin 3.3 Albumin/Globulin Ratio 1.2 Triglycerides 100 Cholesterol 195 LDL Cholesterol, Calc 112 H HDL Cholesterol 63 H Lipase 1539 H Nasal Screen MRSA (PCR) 02/14/19 10:00 WBC RBC Hgb Hct MCV MCH MCHC RDW Plt Count Neut % (Auto) Lymph % (Auto) [place] % (Auto) Eos % (Auto) Baso % (Auto) Neut # (Auto) Lymph # (Auto) [place] # (Auto) Eos # (Auto) Baso # (Auto) Sodium Potassium Chloride Carbon Dioxide BUN Creatinine Estimated GFR BUN/Creatinine Ratio Glucose Calcium Magnesium Total Bilirubin AST ALT Alkaline Phosphatase Total Protein Albumin Globulin Albumin/Globulin Ratio Triglycerides Cholesterol LDL Cholesterol, Calc HDL Cholesterol Lipase Nasal Screen MRSA (PCR) Negative for mrsa Assessment & Plan Assessment & Plan narrative: Marisol Bee is a 53-year-old female with a past medical history significant for hypertension, hyperlipidemia, GERD, gestational diabetes, bipolar disorder, depression, and anxiety with panic attacks who presented to the ED complaining of right upper quadrant abdominal pain. 1. Acute pancreatitis, present on admission. Active. -Patient presented with right upper quadrant abdominal pain radiating to chest and back for 36 hours. No associated nausea, vomiting, fever, or chills. -Secondary to increased alcohol use and possibly medications. Gallstones/CBD ruled out. Triglycerides ruled out. -Lipase 1539. Normal LFTs. Continue to trend lipase daily. -Abdominal ultrasound demonstrated increased hepatic echogenicity consistent with hepatic steatosis without stones or any acute hepatic or biliary pathology. -Patient is NPO for bowel rest. -Continue IV fluid hydration with D5 normal saline at 150 mL/hr due to patient's history of hypoglycemia. -Continue morphine 1-2 mg every 4 hours as needed for pain and ondansetron 4 mg IV every 4 hours as needed for nausea or vomiting. 2. Hypoglycemia, chronic, present on admission. -Continue to monitor glucose every 6 hours. -Continue IV fluid hydration with D5 normal saline at 150 mL/hr due to patient's history of hypoglycemia. 3. Hypokalemia, chronic, present on admission. Stable. -Initial potassium 4.0. Continue to trend and restart potassium chloride 10 mEq daily when appropriate for PO intake and if needed will provide IV potassium chloride. 4. Bipolar disorder depression and anxiety with history of panic attacks, chronic, present on admission. Stable. -Continue divalproex 2000 mg daily in the evening and citalopram 40 mg daily in the evening when appropriate for PO intake. -Patient reports she does not use diazepam very often as she does not have panic attacks often. 5. Hypertension, chronic, present on admission. Stable. -Continue lisinopril 10 mg daily in the evening when appropriate for PO intake. 6. Hyperlipidemia, chronic, present on admission. Stable. -Continue simvastatin 5 mg daily when appropriate for PO intake. 7. GERD, chronic, present on admission. Stable. -Continue protonix 40 mg IV daily and switch to PO when appropriate for PO intake. 8. Seasonal allergies, chronic, present on admission. Stable. -Continue daily when appropriate for PO intake. Patient is admitted under inpatient status with expected length of stay greater than 2 midnights due to severity of presenting symptoms, risk of adverse event, and complexity of treatment plan. Quality VTE Deep Vein Thrombosis/Pulmonary Embolism Present on Admission: No
[2019-02-14] MEDS: DEXTROSE 5%-0.9% NS 1,000 ML 150 ML IV ×2 (13:52→20:38)
[2019-02-14] MEDS: SODIUM CHLORIDE 0.9% FLUSH 10 ML IV ×2 (18:44→20:45)
[2019-02-14] MEDS: MORPHINE 2 MG/ML INJ 1 MG IV (19:37)
[2019-02-14] MEDS: HEPARIN 5,000 UNIT/ML VIAL 5000 UNIT SUBCUT (20:50)
--- NOTE | 2019-02-14 22:55 | PC.NURSE ---
1500-Bedside report done, bedside safety checks complete. patient alert and oriented. assumed care. 1900-VSS, patient receiving PRN Zofran for c/o nausea. 2100-Patient reports morphine is not providing adequate pain relief; discussed w/MD; order for dilaudid received. 2200-VSS, afebrile. patient appears asleep and at bedside. Report to oncoming RN.
[2019-02-14] MEDS: HYDROMORPHONE 0.5 MG INJ IV (23:42)
[2019-02-15] VITALS (10 sets, daily range): BP systolic 134–165; BP diastolic 62–89; PULSE 74–84; RESP 16–18; TEMP 36.4–36.9; O2SAT 94–99
[2019-02-15] MEDS: MELATONIN 3 MG TABLET PO ×2 (00:05→20:49)
[2019-02-15] MEDS: DEXTROSE 5%-0.9% NS 1,000 ML 150 ML IV (03:12)
[2019-02-15 05:33] LABS: Add Manual Diff / Slide Review NO; Basophils Absolute Auto 0 /uL (0-100); Basophils Percent Auto 0.2 % (0-2); Eosinophils Absolute Auto 300 /uL (0-450); Eosinophils Percent Auto 4.8 % (2-4); Hematocrit 36.9 % (36-46); Hemoglobin 12.7 g/dL (12.0-16.0); Lymphocytes Absolute Auto 1600 /uL (1100-4500); Lymphocytes Percent Auto 22.4 % (25-40); Mean Corpuscular HGB Conc 34.3 % (30-36); Mean Corpuscular Hemoglobin 32.7 PG (26-34); Mean Corpuscular Volume 95.2 fL (80-100); Monocytes Absolute Auto 1100 /uL (0-900); Monocytes Percent Auto 16.2 % (3-14); Neutrophils Absolute Auto 4000 /uL (1500-7000); Neutrophils Percent Auto 56.4 % (50-75); Platelet Count 136 X10^3/uL (150-400); Red Blood Cell Count 3.87 X10^6/uL (4.0-5.2); White Blood Cell Count 7.1 X10^3/uL (4.5-11.0)
[2019-02-15 05:46] LABS: Alanine Aminotransferase 10 IU/L (<35); Alkaline Phosphatase 49 U/L (38-126); Aspartate Aminotransferase 17 IU/L (14-36); BUN Creatinine Ratio 18.8 (6-22); Bilirubin Total 0.4 mg/dL (0.2-1.3); Blood Urea Nitrogen 15 mg/dL (7-17); Calcium 8.7 mg/dL (8.4-10.2); Carbon Dioxide 31 mmol/L (22-32); Chloride 106 mmol/L (98-107); Estimated Glomerular Filt Rate > 60.0 mL/min (>60); Globulin 2.9 g/dL (1.7-4.1); Glucose 121 mg/dL (70-100); HEMOLYSIS < 15 (0-50); Magnesium 1.7 mg/dL (1.6-2.3); Potassium 4.1 mmol/L (3.4-5.1); Sodium 139 mmol/L (137-145); Total Protein 5.9 g/dL (6.3-8.2)
[2019-02-15 05:56] LABS: Hemoglobin A1C% w Est Avg Glu 5.1 % (4.0-6.0)
[2019-02-15 06:26] LABS: Procalcitonin < 0.05 ng/mL (<0.5)
[2019-02-15] MEDS: HYDROMORPHONE 0.5 MG INJ IV (07:00)
[2019-02-15 07:47] LABS: Lipase 728 U/L (23-300)
[2019-02-15] MEDS: SODIUM CHLORIDE 0.9% FLUSH 10 ML IV ×3 (08:07→16:58)
[2019-02-15] MEDS: PANTOPRAZOLE 40 MG VIAL IV (08:07)
[2019-02-15] MEDS: HEPARIN 5,000 UNIT/ML VIAL 5000 UNIT SUBCUT ×2 (08:08→20:48)
--- NOTE | 2019-02-15 08:39 | PM.PN.1 ---
Subjective Subjective Date Patient Seen: 02/15/19 Interval history: Marisol Bee is a 53-year-old female with a past medical history significant for hypertension, hyperlipidemia, GERD, gestational diabetes, bipolar disorder, depression, and anxiety with panic attacks who presented to the ED complaining of right upper quadrant abdominal pain. The patient is resting in bed comfortably in bed. She reports that she is fatigued. She endorses hunger. She continues to have epigastric abdominal pain which she rates a +4/10 currently. She reports morphine doesnt seem to work well for pain control after several doses and makes her feel out of it. She reports dilaudid worked well for pain control. Discussed narcotic use and encouraged patient to use sparingly. She denies headache, shortness of breath, chest pain, nausea, vomiting, fever, chills, dysuria, diarrhea or constipation. She is voiding without difficulty. She is up ambulating without assistance. Exam Vital Signs (past 8 hours): - 02/15/19 02:57 02/15/19 07:57 02/15/19 08:00 Temperature 97.6 F 98.5 F Pulse Rate 83 75 Respiratory Rate 16 16 Blood Pressure 153/80 H 145/77 H Pulse Oximetry 97 94 94 Oxygen Delivery Method Room Air Oxygen Flow Rate 0 Narrative Exam Narrative: General: Middle-aged female sitting in bed and in no acute distress, well-developed, well-nourished, appropriately interactive. HEENT: Normocephalic, atraumatic. External ears without defect. Pupils equal, round, and reactive to light. Anicteric sclerae, moist conjunctivae, and no lid lag. Oropharynx free of erythema and cobble stoning with moist mucosa. Neck: Supple with full range of motion. No lymphadenopathy or thyromegaly. Cardiovascular: Regular rate and rhythm without murmurs, rubs, or gallops appreciated. Pulmonary: Clear to auscultation bilaterally without crackles, wheezes, or rhonchi. Normal respiratory effort with no use of accessory muscles. Abdomen: Soft, bowel sounds present, mild tenderness to palpation in epigastrium, nondistended. No hepatosplenomegaly or masses appreciated. Extremities: No clubbing, cyanosis, or edema. Skin: Normal temperature, turgor, and texture; no rash, ulcers, or subcutaneous nodules appreciated. Neurological: Cranial nerves grossly intact. Normal muscle strength, tone, and bulk. Reflexes, coordination, and sensory function within normal limits. No known gait impairment. Psychiatric: Normal mood and affect. Alert and oriented to person, place, and time. Objective Labs Result Diagrams: 02/15/19 05:08 02/15/19 05:08 Labs: Laboratory Results - last 24 hr 02/14/19 02/14/19 02/15/19 06:50 10:00 05:00 WBC RBC Hgb Hct MCV MCH MCHC RDW Plt Count Neut % (Auto) Lymph % (Auto) [place] % (Auto) Eos % (Auto) Baso % (Auto) Neut # (Auto) Lymph # (Auto) [place] # (Auto) Eos # (Auto) Baso # (Auto) Sodium Potassium Chloride Carbon Dioxide BUN Creatinine Estimated GFR BUN/Creatinine Ratio Glucose Hemoglobin A1c 5.1 Calcium Magnesium 1.9 Total Bilirubin AST ALT Alkaline Phosphatase Total Protein Albumin Globulin Albumin/Globulin Ratio Triglycerides 100 Cholesterol 195 LDL Cholesterol, Calc 112 H HDL Cholesterol 63 H Lipase Procalcitonin Nasal Screen MRSA (PCR) Negative for mrsa 02/15/19 02/15/19 02/15/19 05:08 05:08 05:08 WBC 7.1 RBC 3.87 L Hgb 12.7 Hct 36.9 MCV 95.2 MCH 32.7 MCHC 34.3 RDW 13.0 Plt Count 136 L Neut % (Auto) 56.4 Lymph % (Auto) 22.4 L [place] % (Auto) 16.2 H Eos % (Auto) 4.8 H Baso % (Auto) 0.2 Neut # (Auto) 4000 Lymph # (Auto) 1600 [place] # (Auto) 1100 H Eos # (Auto) 300 Baso # (Auto) 0 Sodium 139 Potassium 4.1 Chloride 106 Carbon Dioxide 31 BUN 15 Creatinine 0.80 Estimated GFR > 60.0 BUN/Creatinine Ratio 18.8 Glucose 121 H Hemoglobin A1c Calcium 8.7 Magnesium 1.7 Total Bilirubin 0.4 AST 17 ALT 10 Alkaline Phosphatase 49 Total Protein 5.9 L Albumin 3.0 L Globulin 2.9 Albumin/Globulin Ratio 1.0 Triglycerides Cholesterol LDL Cholesterol, Calc HDL Cholesterol Lipase Procalcitonin < 0.05 Nasal Screen MRSA (PCR) 02/15/19 05:08 WBC RBC Hgb Hct MCV MCH MCHC RDW Plt Count Neut % (Auto) Lymph % (Auto) [place] % (Auto) Eos % (Auto) Baso % (Auto) Neut # (Auto) Lymph # (Auto) [place] # (Auto) Eos # (Auto) Baso # (Auto) Sodium Potassium Chloride Carbon Dioxide BUN Creatinine Estimated GFR BUN/Creatinine Ratio Glucose Hemoglobin A1c Calcium Magnesium Total Bilirubin AST ALT Alkaline Phosphatase Total Protein Albumin Globulin Albumin/Globulin Ratio Triglycerides Cholesterol LDL Cholesterol, Calc HDL Cholesterol Lipase 728 H D Procalcitonin Nasal Screen MRSA (PCR) Assessment & Plan Assessment & Plan narrative: Marisol Bee is a 53-year-old female with a past medical history significant for hypertension, hyperlipidemia, GERD, gestational diabetes, bipolar disorder, depression, and anxiety with panic attacks who presented to the ED complaining of right upper quadrant abdominal pain. 1. Acute pancreatitis, present on admission. Active. -Patient presented with right upper quadrant abdominal pain radiating to chest and back for 36 hours. No associated nausea, vomiting, fever, or chills. -Secondary to increased alcohol use and possibly medications. Gallstones/CBD ruled out. Triglycerides ruled out. -Abdominal ultrasound demonstrated increased hepatic echogenicity consistent with hepatic steatosis without stones or any acute hepatic or biliary pathology. -Lipase 1539. Normal LFTs. Continue to trend lipase daily. Lipase trending down now 728. -Patient has been NPO for bowel rest. Plan to start clear liquid diet and will advance if tolerated. -Discontinued D5 NS as blood glucose is stable and starting clear liquid diet. Continue IV fluid hydration with normal saline at 125 mL/hr and will add glucose source if needed. -Continue morphine 1-2 mg every 4 hours as needed for pain and ondansetron 4 mg IV every 4 hours as needed for nausea or vomiting. 2. Hypoglycemia, chronic, present on admission. -Continue to monitor glucose every 6 hours. -Discontinued D5 NS as blood glucose is stable and starting clear liquid diet. Continue IV fluid hydration with normal saline at 125 mL/hr and will add glucose source if needed. 3. Hypokalemia, chronic, present on admission. Stable. -Initial potassium 4.0. Continue to trend and restart potassium chloride 10 mEq daily when appropriate for PO intake and if needed will provide IV potassium chloride. 4. Bipolar disorder depression and anxiety with history of panic attacks, chronic, present on admission. Stable. -Continue divalproex 2000 mg daily in the evening and citalopram 40 mg daily in the evening. -Patient reports she does not use diazepam very often for panic attacks because they are infrequent. 5. Hypertension, chronic, present on admission. Stable. -Continue lisinopril 10 mg daily. 6. Hyperlipidemia, chronic, present on admission. Stable. -Continue simvastatin 5 mg daily. 7. GERD, chronic, present on admission. Stable. -Continue protonix 40 mg daily. 8. Seasonal allergies, chronic, present on admission. Stable. -Continue cetirizine 10 mg daily. Disposition: Quality VTE Deep Vein Thrombosis/Pulmonary Embolism Present on Admission: No
[2019-02-15] MEDS: SODIUM CHLORIDE 0.9% 1,000 ML 125 ML IV ×2 (09:01→16:54)
--- NOTE | 2019-02-15 09:25 | PC.NURSE ---
Addendum entered by Teresa Fleming R.N. 02/15/19 14:05: At 1400, Pt reported pain still 4-5/10 RUQ aching, cramping, after slow intake clear liquid diet. Thus far pt has had 100% of jello cup, 75% of broth, and tea. Wanted lunch tray left at bedside for now. Ambulated outside of room indep with IV pole, S.O. Archie at side. Pt ambulated from room 101 to 105, sat in chair outside room as stated was having abd cramping. Then ambulated back into her room 101. Tolerated ambulation without dizziness or light-headedness. Addendum entered by Teresa Fleming R.N. 02/15/19 12:15: Pt rec'd PRN IV Morphine request 1mg from 2mg ordered at 1140 by another RN for pain 8/10 to RUQ abd. Upon reassessment at 1205, pain 4/10 while sitting upright starting on her clear liquid diet. Explained for pt to intake clears slowly, stop and rest if increased nausea or abd pain. Pt agreeable, states is feeling hungry and wanting to try clear liquid diet. At 1215, Dr. Costa made aware of final urine culture result of positive Lactobacillus Species. No new orders at this time. Original Note: Day Shift- Pt A&OX4, able to make needs known using lance light. Pt's S.O. Archie also in room. Pt OOB indep using IV pole with steady gait, denies light-headedness or dizziness. At 0715 wanted Calf SCD's removed for some time. Encouraged ankle pump exercises while SCD's are off. Pt states she will have the SCDs replaced later. Pt reports 4-5/10 aching to Right upper quadrant abd with tenderness. Mild nausea intermittent, none at the time of assessment. Remains NPO, mouth swabs and lip balm present on bedside table. IV infusing well to right hand PIV. Update given/rec'd to Dr. Costa around 0820. Clarify if to continue Q6hr blood glucose finger stick checks. At 0900, IVF changed to NS @ 125 ml/hr per order, pt now on clear liquid diet. Verbal order rec'd from Dr. Costa to continue Q6hr blood glucose finger stick checks. For pain management, per Dr. Costa, try again prn Morphine when needed. Verbal order by Dr. Costa at 0915 to re-order prn Dilaudid 0.5mg IV Q6hr prn if morphine not effective. Pt has no other voiced concerns at this time. Call light within reach.
--- NOTE | 2019-02-15 10:21 | PM.CHAP ---
Patient was resting, visited with spouse and all seemed to be going well at this time.
--- NOTE | 2019-02-15 10:39 | CM.DANOTE ---
Discharge Planning/Care Management DCP: assessment: case received, EMR reviewed. Discussed in Team Rounds. Pt is a 53 year old who admitted yesterday to care of hospitalist team. 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 Pt is up independently in her room. At this time plan is to advance her diet today and, if pt continues to improve, likely home tomorrrow. (Dr. Costa noted that pt had s/s mild pancreatitis which may have been triggered by some increased alchohol use. She stated in Rounds that she did not see any need for a social science manager/CD assessment). P: check in with pt for introduction of self and role and follow prn for any d/c needs that may arise. CM Discharge Assessment Start: 02/15/19 10:38 Freq: Status: Active Protocol: Document 02/15/19 10:38 ITV (Rec: 02/15/19 10:39 ITV [id number]) Discharge Planning Assessment Advance Directives? No History Provided By Patient,Medical Record Prior Living Arrangements RV Household Members spouse,children Review Status In Process
[2019-02-15] MEDS: MORPHINE 2 MG/ML INJ 1 MG IV ×2 (11:41→20:48)
[2019-02-15] MEDS: MORPHINE 2 MG/ML INJ IV (16:52)
[2019-02-15] MEDS: ONDANSETRON 4 MG/2 ML INJ IV (16:52)
[2019-02-15] MEDS: ACETAMINOPHEN 325 MG TABLET 650 MG PO ×2 (16:53→23:32)
[2019-02-15] MEDS: LISINOPRIL 10 MG TABLET PO (16:53)
[2019-02-15] MEDS: DIVALPROEX DR 250 MG TABLET 2000 MG PO (16:53)
[2019-02-15] MEDS: CITALOPRAM 20 MG TABLET 40 MG PO (16:54)
[2019-02-15] MEDS: SIMVASTATIN 10 MG TABLET 5 MG PO (16:55)
--- NOTE | 2019-02-15 22:35 | PC.NURSE ---
1500-Received report, bedside safety checks done. assumed care of patient. Assessment completed. 1800-patient consumed 75% clears and adequate PO intake; tolerated clears- no nausea, no emesis; pain controlled 4/10 post morphine administration. 2000- 1mg PRN morphine for 6/10 pain. 2200-patient up to bathroom w/assist for equipment, denies dizziness. Adequate UOP. no falls or injuries as of this note.
[2019-02-16] MEDS: SODIUM CHLORIDE 0.9% 1,000 ML 125 ML IV (01:09)
[2019-02-16] MEDS: MORPHINE 2 MG/ML INJ IV ×2 (01:26→04:17)
[2019-02-16 03:08] VITALS: BP 166/88; PULSE 74; RESP 18; TEMP 36.8; O2SAT 99
[2019-02-16] MEDS: ONDANSETRON 4 MG/2 ML INJ IV ×2 (03:35→08:55)
[2019-02-16] MEDS: PANTOPRAZOLE 40 MG TABLET PO (04:16)
[2019-02-16 05:20] LABS: Add Manual Diff / Slide Review NO; Basophils Absolute Auto 0 /uL (0-100); Basophils Percent Auto 0.2 % (0-2); Eosinophils Absolute Auto 300 /uL (0-450); Eosinophils Percent Auto 4.1 % (2-4); Hematocrit 34.3 % (36-46); Hemoglobin 11.9 g/dL (12.0-16.0); Lymphocytes Absolute Auto 1600 /uL (1100-4500); Lymphocytes Percent Auto 20.9 % (25-40); Mean Corpuscular HGB Conc 34.7 % (30-36); Mean Corpuscular Hemoglobin 32.6 PG (26-34); Mean Corpuscular Volume 94.2 fL (80-100); Monocytes Absolute Auto 1100 /uL (0-900); Monocytes Percent Auto 14.2 % (3-14); Neutrophils Absolute Auto 4500 /uL (1500-7000); Neutrophils Percent Auto 60.6 % (50-75); Platelet Count 124 X10^3/uL (150-400); Red Blood Cell Count 3.64 X10^6/uL (4.0-5.2); Red Cell Distribution Width 13.1 % (11.6-14.8); White Blood Cell Count 7.5 X10^3/uL (4.5-11.0)
[2019-02-16 05:29] LABS: Lipase 162 U/L (23-300)
[2019-02-16 07:00] VITALS: O2SAT 97
[2019-02-16 07:30] VITALS: BP 181/86; PULSE 68; RESP 16; TEMP 37.1; O2SAT 97
[2019-02-16] MEDS: ACETAMINOPHEN 325 MG TABLET 650 MG PO (07:57)
--- NOTE | 2019-02-16 08:01 | PM.DS.1 ---
History of Present Illness History of Present Illness Chief complaint: right side abdomen pain up into chest Narrative: Written by myself Dr. Costa: Marisol Bee is a 53-year-old female with a past medical history significant for hypertension, hyperlipidemia, GERD, gestational diabetes, bipolar disorder, depression, and anxiety with panic attacks who presented to the ED complaining of right upper quadrant abdominal pain. The patient reports that she has had right upper quadrant abdominal pain for approximately 36 hours. The pain radiated up to her chest and to her back. She has never had a pain like this before. She denies associated nausea, vomiting, fever, or chills. She does endorse decreased appetite. She has no other complaints and denies headache, chest pain, shortness of breath, dysuria, diarrhea or constipation. She has had no recent viral illness. She tried tramadol and Aleve without relief. She reports that the pain worsen with position changes and was better on her left side. She is currently going to [employer] school and reports she has been under a high amount of stress. She does not normally consume alcohol. However, due to high amount of stress with school she has been drinking several times a week anywhere from 1-3 glasses of [employer] liquor. She has no other complaints. In the ED the patient the patient had normal CBC and BMP. She was found to have a lipase of 1539. Abdominal ultrasound performed did not demonstrate any acute hepatic or biliary pathology. The patient was admitted inpatient for further evaluation and treatment. PCP is Dr. Mami Ro Discharge Providers Provider Date of admission: 02/14/19 08:17 Discharge Date: 02/16/19 Primary care physician: Mami Ro Consults: 02/14/19 10:03 Consult to Pastoral Services Routine Comment: willing to visit with professional healthcare representative, Discharge provider: Edith Costa DO Summary Hospital Course Discharge Diagnosis: 1. Acute pancreatitis, present on admission. Resolved. 2. History of hypoglycemia. 3. History of hypokalemia. 4. Bipolar disorder depression and anxiety with history of panic attacks, chronic, present on admission. Stable. 5. Hypertension, chronic, present on admission. Stable. 6. Hyperlipidemia, chronic, present on admission. Stable. 7. GERD, chronic, present on admission. Stable. 8. Seasonal allergies, chronic, present on admission. Stable. Hospital Course: Marisol Bee is a 53-year-old female with a past medical history significant for hypertension, hyperlipidemia, GERD, gestational diabetes, bipolar disorder, depression, and anxiety with panic attacks who presented to the ED complaining of right upper quadrant abdominal pain. 1. Acute pancreatitis, present on admission. Resolved. -Patient presented with right upper quadrant abdominal pain radiating to chest and back for 36 hours. No associated nausea, vomiting, fever, or chills. -Secondary to increased alcohol use and possibly interaction with medications. Gallstones/CBD ruled out. Triglycerides ruled out. -Abdominal ultrasound demonstrated increased hepatic echogenicity consistent with hepatic steatosis without stones or any acute hepatic or biliary pathology. -Lipase 1539. Normal LFTs. Continued to trend lipase daily. Lipase trended down and normalized at 162. -Patient initially was NPO for bowel rest and slowly advance diet to soft, low fat, low residual diet. -Continued IV fluids until adequately hydrated than discontinued. -Continued morphine 1-2 mg every 4 hours as needed for pain and discharged with temporary prescription for hydrocodone 2.5 mg every 8 hours as needed for severe pain. Continue ondansetron 4 mg IV every 4 hours as needed for nausea or vomiting and discharge with temporary prescription. 2. History of hypoglycemia. -Continued to monitor glucose every 6 hours while NPO. No evidence of hypoglycemia during hospitalization. -Continued IV fluids with dextrose source until able to advance diet. 3. History of hypokalemia. -Initial potassium 4.0. Continued to trend and no evidence of hypokalemia during hospitalization. -Continued potassium chloride 10 mEq daily at time of discharge. 4. Bipolar disorder depression and anxiety with history of panic attacks, chronic, present on admission. Stable. -Continued divalproex 2000 mg daily in the evening and citalopram 40 mg daily in the evening once able to advance diet. -Patient reports she does not use diazepam very often for panic attacks because they are infrequent. 5. Hypertension, chronic, present on admission. Stable. -Continued lisinopril 10 mg daily once able to advance diet. 6. Hyperlipidemia, chronic, present on admission. Stable. -Continued simvastatin 5 mg daily once able to advance diet. 7. GERD, chronic, present on admission. Stable. -Continued protonix 40 mg daily once able to advance diet 8. Seasonal allergies, chronic, present on admission. Stable. -Continued cetirizine 10 mg daily. Exam Vital Signs (past 8 hours): - 02/16/19 03:08 Temperature 98.3 F Pulse Rate 74 Respiratory Rate 18 Blood Pressure 166/88 H Pulse Oximetry 99 Oxygen Delivery Method Room Air Oxygen Flow Rate 0 Narrative Exam Narrative: General: Middle-aged female sitting in bed and in no acute distress, well-developed, well-nourished, appropriately interactive. HEENT: Normocephalic, atraumatic. External ears without defect. Pupils equal, round, and reactive to light. Anicteric sclerae, moist conjunctivae, and no lid lag. Oropharynx free of erythema and cobble stoning with moist mucosa. Neck: Supple with full range of motion. No lymphadenopathy or thyromegaly. Cardiovascular: Regular rate and rhythm without murmurs, rubs, or gallops appreciated. Pulmonary: Clear to auscultation bilaterally without crackles, wheezes, or rhonchi. Normal respiratory effort with no use of accessory muscles. Abdomen: Soft, bowel sounds present, nontender, nondistended. Tenderness to palpation epigastrium resolved. No hepatosplenomegaly or masses appreciated. Extremities: No clubbing, cyanosis, or edema. Skin: Normal temperature, turgor, and texture; no rash, ulcers, or subcutaneous nodules appreciated. Neurological: Cranial nerves grossly intact. Normal muscle strength, tone, and bulk. Reflexes, coordination, and sensory function within normal limits. No known gait impairment. Psychiatric: Normal mood and affect. Alert and oriented to person, place, and time. Objective Labs Result Diagrams: 02/16/19 04:58 02/15/19 05:08 Labs: Laboratory Results - last 24 hr 02/16/19 02/16/19 04:58 04:58 WBC 7.5 RBC 3.64 L Hgb 11.9 L Hct 34.3 L MCV 94.2 MCH 32.6 MCHC 34.7 RDW 13.1 Plt Count 124 L Neut % (Auto) 60.6 Lymph % (Auto) 20.9 L Aiken % (Auto) 14.2 H Eos % (Auto) 4.1 H Baso % (Auto) 0.2 Neut # (Auto) 4500 Lymph # (Auto) 1600 Aiken # (Auto) 1100 H Eos # (Auto) 300 Baso # (Auto) 0 Lipase 162 D Discharge Plan Discharge Plan Patient Disposition: Home Discharge comment: You are being discharged home. You had mild pancreatitis likely related to recent alcohol use and possibly interference with medications. Please abstain from alcohol. Please consume a soft diet that is low in fat and slowly advance to your normal diet over the next several days as tolerated. Please follow-up with your PCP Dr. Ro in the next 1 week regarding your hospitalization. Discharge Med Rec/Prescriptions Prescriptions: New hydrocodone-acetaminophen 2.5-325 mg tablet 1 tab PO BID PRN (Reason: pain (scale score 7-10)) Qty: 7 RF: 0 ondansetron 4 mg tablet,disintegrating 4 mg PO Q8H PRN (Reason: nausea and vomiting) Qty: 10 RF: 0 Continued citalopram 40 mg tablet 40 mg PO QPM RF: 0 cetirizine 10 mg tablet 10 mg PO DAILY RF: 0 tramadol 50 mg tablet 50 mg PO TID PRN (Reason: pain) RF: 0 pantoprazole 40 mg tablet,delayed release (DR/EC) 40 mg PO DAILY RF: 0 divalproex 500 mg tablet extended release 24 hr 2,000 mg PO QPM RF: 0 epinephrine 0.3 mg/0.3 mL auto-injector 0.3 mg IM PRN PRN (Reason: Allergic Reaction) RF: 0 diazepam 5 mg tablet 5 mg PO BID PRN (Reason: Anxiety) RF: 0 simvastatin 5 mg tablet 5 mg PO QPM RF: 0 lisinopril 10 mg tablet 10 mg PO QPM RF: 0 naproxen 500 mg tablet 500 mg PO BID PRN (Reason: pain) RF: 0 potassium chloride 10 mEq capsule, extended release 10 meq PO DAILY RF: 0 Follow up/Referrals: Mami Ro [Primary Care Provider] - 1 Week Provider Discharge Instructions Diet: Diet as Tolerated and Low-fat Diet comment: Soft and low fat diet, slowly advance to normal as tolerated Activity: Activity as tolerated Visit Report/Discharge Packet Instructions: Eating a Diet Low in Saturated Fat, Trans Fat, and Cholesterol, Alcohol and Stress: There are Safer Ways to [place], Soft Diet, DI for Pancreatitis Discharge Data Primary Care Provider: Mami Ro Quality VTE Deep Vein Thrombosis/Pulmonary Embolism Present on Admission: No
--- NOTE | 2019-02-16 09:12 | PC.NURSE ---
Addendum entered by Deyanira Clark R.N. 02/16/19 11:38: 1145-Pt agreeable to d/c home reviewed all medications and follow up. Spouse in room, IV cath removed. Pt will have lunch and be ready to go, Rx given for [place]. Addendum entered by Deyanira Clark R.N. 02/16/19 10:42: 1045-readdressing pain, of course it hasn't changed, 1/2 of a tab wont touch anything, I know I have to take larger quantities for any relief. When asked if she felt her pain was tolerable for d/c I guess it will have to be, I wont sit here begging for pain medication Update to Dr Costa. Addendum entered by Deyanira Clark R.N. 02/16/19 10:13: 0915-Dr Costa into review D/c planning, education on diet reviewed, as Pt requesting pudding for AM meal. Pt will stay until lunch time to monitor pain control with PO [place], prior to d/c home. Original Note: Am shift Pt is c/o 11/23 pain to RUQ this am. Assisted to shower, Pt requesting pain control. APAP given as D/c orders are pending. Pt discussed Morphine not working well and IV Dilaudid most helpful. Education provided to avoid narcotics and with pending d/c order, goal is to transition to pain control that is PO controlled. Lipase is normal, updated Pt on this and POC including advanced diet.
[2019-02-16] MEDS: HYDROCODONE/ACET 5/325 TABLET 0.5 TAB PO (10:01)
--- NOTE | 2019-02-16 13:00 | CM.DPC ---
DCP: continued: Case discussed in Team Rounds with Dr. Costa noting pt's stability for the home setting. A check in shows that she is preparing for home with her significant other Archie to drive. Followup with PCP is planned.
== END 2019-02-16 13:25 | disposition home or self-care (01) | DRG 282 ==
LOC: ED 08:15 → AC 08:18 → ICU 09:45
PROVIDERS: Emergency Medicine; Admitting Provider Internal Medicine; Emergency Provider Emergency Medicine; PCP Internal Medicine; Visit Provider Internal Medicine
DX: K85.90 Acute pancreatitis without necrosis or infection, unspecified (principal); E16.2 Hypoglycemia, unspecified; E87.6 Hypokalemia; F31.89 Other bipolar disorder; I10 Essential (primary) hypertension; E78.5 Hyperlipidemia, unspecified; K21.9 Gastro-esophageal reflux disease without esophagitis; F31.9 Bipolar disorder, unspecified
CPT/HCPCS: 36415; 76705; 80053; 80061; 82962; 83036; 83690; 83735; 84145; 85025; 87077; 87086; 87797; 93005; 93010; 94762; 96361; 96374; 96375; 99283; 99284; C9113; J1170; J1644; J1885; J2270; J2405

== ENCOUNTER → 2019-05-27 07:31 | Outpatient (CLI) | payer OTHER, MEDICAID, SELFPAY ==
[2019-02-14 09:52] VITALS: BMI 31.8
[2019-05-27 08:25] LABS: Add Manual Diff / Slide Review NO; Basophils Absolute Auto 0 /uL (0-100); Basophils Percent Auto 0.3 % (0-2); Eosinophils Absolute Auto 200 /uL (0-450); Eosinophils Percent Auto 3.7 % (2-4); Hematocrit 41.5 % (36-46); Hemoglobin 13.9 g/dL (12.0-16.0); Lymphocytes Absolute Auto 2400 /uL (1100-4500); Lymphocytes Percent Auto 51.4 % (25-40); Mean Corpuscular HGB Conc 33.5 % (30-36); Mean Corpuscular Hemoglobin 30.7 PG (26-34); Mean Corpuscular Volume 91.6 fL (80-100); Monocytes Absolute Auto 500 /uL (0-900); Neutrophils Absolute Auto 1600 /uL (1500-7000); Neutrophils Percent Auto 34.6 % (50-75); Platelet Count 180 X10^3/uL (150-400); Red Blood Cell Count 4.53 X10^6/uL (4.0-5.2); White Blood Cell Count 4.8 X10^3/uL (4.5-11.0)
[2019-05-27 08:42] LABS: Hemoglobin A1C% w Est Avg Glu 5.4 % (4.0-6.0)
[2019-05-27 09:08] LABS: Alanine Aminotransferase 20 IU/L (<35); Albumin 3.4 g/dL (3.5-5.0); Albumin Globulin Ratio 1.1 (1.0-2.8); Alkaline Phosphatase 56 U/L (38-126); Aspartate Aminotransferase 27 IU/L (14-36); Bilirubin Total 0.3 mg/dL (0.2-1.3); Blood Urea Nitrogen 25 mg/dL (7-17); Calcium 9.4 mg/dL (8.4-10.2); Carbon Dioxide 34 mmol/L (22-32); Chloride 102 mmol/L (98-107); Estimated Glomerular Filt Rate 58.5 mL/min (>60); Globulin 3.2 g/dL (1.7-4.1); Glucose 74 mg/dL (70-100); HEMOLYSIS < 15 (0-50); Potassium 4.2 mmol/L (3.4-5.1); Sodium 139 mmol/L (137-145); Total Protein 6.6 g/dL (6.3-8.2)
[2019-05-27 09:09] LABS: Lipase 84 U/L (23-300)
[2019-05-27 09:34] LABS: Cortisol AM (Before 10AM) 16.5 ug/dL (4.46-22.7)
[2019-05-27 09:35] LABS: TSH w/ Reflex to FT4 5.85 uIU/mL (0.47-4.68)
[2019-05-27 10:00] LABS: Free T4, Direct Thyroxine 0.96 ng/dL (0.78-2.19)
[2019-05-28 16:13] LABS: C Peptide 0.96 ng/mL (0.80-3.85)
[2019-05-29 15:46] LABS: Insulin Level Total 2.8 uIU/mL (2.0-19.6)
[2019-05-30 00:30] LABS: Beta- Hydroxybutyrate 0.05 mmol/L
== END ==
PROVIDERS: PCP Internal Medicine; Referring Provider Internal Medicine; Visit Provider Internal Medicine
DX: E16.2 Hypoglycemia, unspecified (principal); R53.83 Other fatigue
CPT/HCPCS: 36415; 80053; 82009; 82533; 83036; 83525; 83690; 84206; 84439; 84443; 84681; 85025

== ENCOUNTER 2020-04-01 14:24 | Emergency (ER) | payer OTHER, MEDICAID, SELFPAY ==
[2019-02-14 09:52] VITALS: BMI 31.8
[2020-04-01] VITALS (11 sets, daily range): BP systolic 153–187; BP diastolic 76–97; PULSE 81–96; RESP 12–26; TEMP 35.9; O2SAT 93–100; BMI 31.9
[2020-04-01 14:45] LABS: Add Manual Diff / Slide Review NO; Basophils Absolute Auto 100 /uL (0-100); Basophils Percent Auto 0.5 % (0-2); Eosinophils Absolute Auto 100 /uL (0-450); Eosinophils Percent Auto 1.4 % (2-4); Hematocrit 39.7 % (36-46); Hemoglobin 12.9 g/dL (12.0-16.0); Lymphocytes Absolute Auto 2000 /uL (1100-4500); Lymphocytes Percent Auto 19.8 % (25-40); Mean Corpuscular HGB Conc 32.5 % (30-36); Mean Corpuscular Hemoglobin 28.1 PG (26-34); Mean Corpuscular Volume 86.6 fL (80-100); Monocytes Absolute Auto 700 /uL (0-900); Monocytes Percent Auto 7.1 % (3-14); Neutrophils Absolute Auto 7000 /uL (1500-7000); Neutrophils Percent Auto 71.2 % (50-75); Platelet Count 466 X10^3/uL (150-400); Red Blood Cell Count 4.58 X10^6/uL (4.0-5.2); Red Cell Distribution Width 13.2 % (11.6-14.8); White Blood Cell Count 9.9 X10^3/uL (4.5-11.0)
[2020-04-01 14:54] LABS: INR 1.1 (0.9-1.3); Prothrombin Time 12.4 SECONDS (10.1-12.7)
[2020-04-01 14:57] LABS: PTT Partial Thromboplastin Tim 33 SECONDS (26.4-36.2)
[2020-04-01 15:00] LABS: Alanine Aminotransferase 31 IU/L (<35); Albumin 4.7 g/dL (3.5-5.0); Albumin Globulin Ratio 1.1 (1.0-2.8); Alkaline Phosphatase 102 U/L (38-126); Aspartate Aminotransferase 36 IU/L (14-36); BUN Creatinine Ratio 26.1 (6-22); Bilirubin Total 0.7 mg/dL (0.2-1.3); Blood Urea Nitrogen 24 mg/dL (7-17); Calcium 10.3 mg/dL (8.4-10.2); Carbon Dioxide 32 mmol/L (22-32); Chloride 102 mmol/L (98-107); Estimated Glomerular Filt Rate > 60.0 mL/min (>60); Globulin 4.3 g/dL (1.7-4.1); Glucose 115 mg/dL (70-100); HEMOLYSIS 23 (0-50); Potassium 3.8 mmol/L (3.4-5.1); Sodium 138 mmol/L (137-145)
--- NOTE | 2020-04-01 15:02 | DI.US.S_ITS ---
PROCEDURE: US ABDOMEN LIMITED INDICATIONS: RIGHT UPPER QUADRAND PAIN. NAUSEA/VOMITING. TECHNIQUE: Real-time focused scanning was performed of the abdomen, with image documentation. COMPARISON: [facility], US, US ABDOMEN LIMITED, 02/14/2019, 7:09. FINDINGS: Liver demonstrates increased echotexture. No gallstones. The gallbladder wall is mildly thickened measuring 3 mm. There is , no pericholecystic fluid but positive sonographic Reyes's sign. Common bile duct is not visualized. Pancreas is not visualized. No free fluid. IMPRESSION: 1. Diffusely increased hepatic echotexture. This finding is most likely secondary to hepatic fatty infiltration although other hepatocellular disease may have a similar appearance. Recommend clinical correlation. 2. There is mild gallbladder wall thickening and positive sonographic Reyes sign. No gallstones or pericholecystic fluid collection. If clinical suspicion for acute cholecystitis persists, a HIDA scan may be obtained. Dictated by: Alphonse Banks M.D. on 04/01/2020 at 17:49 Approved by: Alphonse Banks M.D. on 04/01/2020 at 17:51
--- NOTE | 2020-04-01 15:08 | ED.GIBLEED ---
HPI - GI Bleed <Catrina HobbsSATNAM - Last Filed: 04/01/20 21:08> General Chief complaint: GI Bleed Stated complaint: bleeding bowels and abdominal pain 9 hr Time Seen by Provider: 04/01/20 14:41 Source: patient Mode of arrival: Ambulatory History of Present Illness HPI Narrative: 54yo female with a history of food allergies, GERD, HTN, a pancreatitis, presents to the emergency department for bright red blood in her stool that started this morning. Last evening she had a glass of wine and eggnog and vomited approximately 20 minutes after having the strength. She states this is consistent with reaction when she has a food allergy. Vomiting. After few hours she continued to have diarrhea. This morning when she woke up to pass stool, she noticed bright red blood. She describes it as approximately a tbsp in the toilet and states ?the toilet paper was saturated. She has had an episode of diarrhea every 2 hours since 6:00 a.m. this morning each time has had some bright red blood in it. She reports right upper quadrant abdominal pain. She denies any fevers, chills, chest pain, nausea at this time, vomiting today, dizziness, or any other concerns. She states she called her doctor today and was told to be evaluated in the emergency department. Patient had been on chronic tramadol treatment for fibromyalgia, she recently discontinued tramadol and has been taking Aleve daily for the past week. Abdominal surgeries include hysterectomy and tubal ligation. Related Data Home Medications Medication Instructions Recorded Confirmed cetirizine 10 mg PO DAILY 01/10/19 02/14/19 citalopram 40 mg PO QPM 01/10/19 02/14/19 diazepam 5 mg PO BID PRN 01/10/19 02/14/19 divalproex 2,000 mg PO QPM 01/10/19 02/14/19 epinephrine 0.3 mg IM PRN PRN 01/10/19 02/14/19 pantoprazole 40 mg PO DAILY 01/10/19 02/14/19 tramadol 50 mg PO TID PRN 01/10/19 02/14/19 lisinopril 10 mg PO QPM 02/14/19 02/14/19 naproxen 500 mg PO BID PRN 02/14/19 02/14/19 potassium chloride 10 meq PO DAILY 02/14/19 02/14/19 simvastatin 5 mg PO QPM 02/14/19 02/14/19 Previous Rx's Medication Instructions Recorded hydrocodone-acetaminophen 1 tab PO BID PRN #7 tab 02/16/19 ondansetron 4 mg PO Q8H PRN #10 tab 02/16/19 omeprazole 20 mg PO DAILY 14 Days #14 cap 04/01/20 Allergies Allergy/AdvReac Type Severity Reaction Status Date / Time latex Allergy Severe Anaphylaxis Verified 04/01/20 14:32 codeine AdvReac Intermediate Vomiting Verified 04/01/20 14:32 doxycycline AdvReac Mild Vomiting Verified 04/01/20 14:32 erythromycin base AdvReac Mild Vomiting Verified 04/01/20 14:32 Penicillins AdvReac Mild Rash Verified 04/01/20 14:32 Review of Systems <SATNAM Mtz - Last Filed: 04/01/20 21:08> Review of Systems Narrative: REVIEW OF SYSTEMS: GENERAL: Denies fever, chills, malaise, or wt. loss. HENT: No head trauma, sore throat, or dysphagia. EYES: No loss of vision, double vision, eye pain, or irritation. CARDIOVASCULAR: No chest pain. RESPIRATORY: No cough. GASTROINTESTINAL: Complains of right-sided upper abdominal pain, see HPI GENITOURINARY: No flank pain. MUSCULOSKELETAL: No pain. INTEGUMENTARY: No rash. NEURO: No numbness or tingling. PSYCH: No behavior or mood changes. Patient History <SATNAM Mtz - Last Filed: 04/01/20 21:08> Medical History Anaphylaxis Asthma Bipolar disorder Fibromyalgia GERD (gastroesophageal reflux disease) Gestational diabetes Hyperlipidemia Hypertension Hypoglycemia Hypokalemia Panic attacks Seasonal allergies Surgical History H/O rhinoplasty H/O: hysterectomy History of lumpectomy of right breast Hx of tonsillectomy S/P ACL repair Family History Mother Aspiration pneumonia Throat cancer Father Congestive heart failure Social History household members: spouse and children Smoking Status: Never smoker alcohol intake: current Smoking Status: Never smoker alcohol intake frequency: 0-2 drinks per day Substance Use Type: does not use Exam <Catrina HobbsSATNAM - Last Filed: 04/01/20 21:08> Initial Vital Signs Initial Vital Signs: Vital Signs Temperature 96.7 F L 04/01/20 14:30 Pulse Rate 96 H 04/01/20 14:30 Respiratory Rate 16 04/01/20 14:30 Blood Pressure 186/95 H 04/01/20 14:30 Pulse Oximetry 95 04/01/20 14:30 PHYSICAL EXAMINATION: GENERAL: 54-year-old female, awake and alert, no distress. HENT: Normocephalic, atraumatic. Hearing intact. Oral mucosa is pink and moist. EYES: Conjunctiva pink, sclera white, no periorbital swelling. CARDIOVASCULAR: S1 and S2 sounds normal. Regular rate and rhythm, no murmurs, clicks, or bruits. No pedal edema. RESPIRATORY: Normal respiratory rate, trachea midline, airway patent. No stridor, nasal flaring or accessory muscle use. Lungs are clear in all henriquez without wheeze, rhonchi, or crackles. GASTROINTESTINAL: Bowel sounds normoactive. Abdomen is soft with right upper quadrant tenderness, no rebound tenderness.. No organomegaly, no palpable masses. RECTAL: Exam performed with GALEN Leger at bedside. No external hemorrhoids, no internal hemorrhoids palpated. No bright red blood, small amount of mucousy stool. Stool guaiac negative. GENITALURINARY: No flank tenderness. MUSCULOSKELETAL: Normal gait and coordination. Equal tone and mass bilaterally. EXTREMITIES: CMS intact, no pedal edema. SKIN: Warm, dry, soft, appropriate color for ethnicity. No lesions, rashes, or wounds to visualized areas. NEURO: Alert and Oriented X 3. Good coordination. No ataxia, or sensory deficits, or cognitive issues. PSYCH: Appropriate affect and mood. <Liyah Bee DO - Last Filed: 04/07/20 09:08> Initial Vital Signs Initial Vital Signs: Vital Signs Temperature 96.7 F L 04/01/20 14:30 Pulse Rate 96 H 04/01/20 14:30 Respiratory Rate 16 04/01/20 14:30 Blood Pressure 186/95 H 04/01/20 14:30 Pulse Oximetry 95 12/17/20 14:30 Course <Catrina Hobbs SHEEP CLIPPER - Last Filed: 04/01/20 21:08> Course Course Narrative: Patient initially given Protonix and a fluid bolus. Orders Ordered: Discontinued Medications Sodium Chloride (Normal Saline 0.9%) 500 mls @ 1,000 mls/hr IV BOLUS PRN PRN Reason: Fluid replacement Last Infusion: 04/01/20 15:45 Dose: 0 mls/hr Documented by: Admin: 04/01/20 15:11 Dose: 1,000 mls/hr Documented by: VIVEK Morphine Sulfate (Morphine 2 Mg/Ml Inj) 2 mg IV NOW ONE Stop: 04/01/20 15:32 Last Admin: 04/01/20 15:57 Dose: 2 mg Documented by: VIVEK Pantoprazole Sodium (Pantoprazole 40 Mg Vial) 80 mg IV NOW ONE Stop: 04/01/20 15:03 Last Admin: 04/01/20 15:09 Dose: 80 mg Documented by: VIVEK Consultations Consultation #1: Patient staffed with Dr. Bee and Dr. Garcia. Vital Signs Vital signs: Vital Signs - 8 hr 04/01/20 14:30 04/01/20 14:48 04/01/20 14:49 Temperature 96.7 F L Pulse Rate 96 H 92 H 91 H Respiratory Rate 16 13 12 Blood Pressure 186/95 H 167/80 H Pulse Oximetry 95 95 98 04/01/20 15:00 04/01/20 15:30 04/01/20 16:01 Temperature Pulse Rate 87 91 H Respiratory Rate 26 H Blood Pressure 168/76 H 177/91 H Pulse Oximetry 99 100 04/01/20 16:02 04/01/20 16:30 04/01/20 18:21 Temperature Pulse Rate 92 H 87 83 Respiratory Rate 13 24 23 Blood Pressure 174/97 H 181/87 H Pulse Oximetry 100 04/01/20 18:22 04/01/20 18:30 Temperature Pulse Rate 88 81 Respiratory Rate 15 22 Blood Pressure 187/91 H 153/86 H Pulse Oximetry 93 99 <Liyah Bee DO - Last Filed: 04/07/20 09:08> Orders Ordered: Discontinued Medications Sodium Chloride (Normal Saline 0.9%) 500 mls @ 1,000 mls/hr IV BOLUS PRN PRN Reason: Fluid replacement Last Infusion: 04/01/20 15:45 Dose: 0 mls/hr Documented by: Admin: 04/01/20 15:11 Dose: 1,000 mls/hr Documented by: MERIR Morphine Sulfate (Morphine 2 Mg/Ml Inj) 2 mg IV NOW ONE Stop: 04/01/20 15:32 Last Admin: 04/01/20 15:57 Dose: 2 mg Documented by: MERIR Pantoprazole Sodium (Pantoprazole 40 Mg Vial) 80 mg IV NOW ONE Stop: 04/01/20 15:03 Last Admin: 04/01/20 15:09 Dose: 80 mg Documented by: VIVEK Vital Signs Vital signs: Vital Signs - 8 hr 04/01/20 14:30 04/01/20 14:48 04/01/20 14:49 Temperature 96.7 F L Pulse Rate 96 H 92 H 91 H Respiratory Rate 16 13 12 Blood Pressure 186/95 H 167/80 H Pulse Oximetry 95 95 98 04/01/20 15:00 04/01/20 15:30 04/01/20 16:01 Temperature Pulse Rate 87 91 H Respiratory Rate 26 H Blood Pressure 168/76 H 177/91 H Pulse Oximetry 99 100 04/01/20 16:02 04/01/20 16:30 04/01/20 18:21 Temperature Pulse Rate 92 H 87 83 Respiratory Rate 13 24 23 Blood Pressure 174/97 H 181/87 H Pulse Oximetry 100 04/01/20 18:22 04/01/20 18:30 Temperature Pulse Rate 88 81 Respiratory Rate 15 22 Blood Pressure 187/91 H 153/86 H Pulse Oximetry 93 99 MDM - GI Bleed <SATNAM Mtz - Last Filed: 04/01/20 21:08> Medical Records Attestation: I reviewed the patient's medical records. Lab Data Attestation: I reviewed the patient's lab results. Result diagrams: 04/01/20 14:35 04/01/20 14:35 Labs: Lab Results 04/01/20 04/01/20 04/01/20 Range/Units 14:35 14:35 14:35 WBC 9.9 (4.5-11.0) X10^3/uL RBC 4.58 (4.0-5.2) X10^6/uL Hgb 12.9 (12.0-16.0) g/dL Hct 39.7 (36-46) % MCV 86.6 (80-100) fL MCH 28.1 (26-34) PG MCHC 32.5 (30-36) % RDW 13.2 (11.6-14.8) % Plt Count 466 H (150-400) X10^3/uL Neut % (Auto) 71.2 (50-75) % Lymph % (Auto) 19.8 L (25-40) % [place] % (Auto) 7.1 (3-14) % Eos % (Auto) 1.4 L (2-4) % Baso % (Auto) 0.5 (0-2) % Neut # (Auto) 7000 (9214-6903) /uL Lymph # (Auto) 2000 (1512-2048) /uL [place] # (Auto) 700 (0-900) /uL Eos # (Auto) 100 (0-450) /uL Baso # (Auto) 100 (0-100) /uL PT 12.4 (10.1-12.7) SECONDS INR 1.1 (0.9-1.3) APTT 33 (26.4-36.2) SECONDS Sodium 138 (137-145) mmol/L Potassium 3.8 (3.4-5.1) mmol/L Chloride 102 (98-107) mmol/L Carbon Dioxide 32 (22-32) mmol/L BUN 24 H (7-17) mg/dL Creatinine 0.92 (0.52-1.04) mg/dL Estimated GFR > 60.0 (>60) mL/min BUN/Creatinine Ratio 26.1 H (6-22) Glucose 115 H (70-100) mg/dL Calcium 10.3 H (8.4-10.2) mg/dL Total Bilirubin 0.7 (0.2-1.3) mg/dL AST 36 (14-36) IU/L ALT 31 (<35) IU/L Alkaline Phosphatase 102 (38-126) U/L Total Protein 9.0 H (6.3-8.2) g/dL Albumin 4.7 (3.5-5.0) g/dL Globulin 4.3 H (1.7-4.1) g/dL Albumin/Globulin Ratio 1.1 (1.0-2.8) Point of Care Testing Test Results Negative Stool Occult Blood Negative Urine Dip Bedside Urine Glucose Negative Bedside Urine Bilirubin + 1 Bedside Urine Ketone - Negative Urine Specific [place] 1.030 Bedside Urine Occult Blood - Negative Bedside Urine pH 6 Bedside Urine Protein +/- 15 Bedside Urine Urobilinogen - Negative Bedside Urine Nitrite - Negative Bedside Urine Leukocytes - Negative Esterase Imaging Data abdominal US: Radiologist's Impression: [address] [id number] ReportSigned Patient: Marisol Bee LMR#: [id number]: 1965Acct:[id number]/Sex: 54 / FDate of Service: 04/01/20Loc: EDAccession Number: [id number] Procedure: US abdomen limited Ordering Provider: Catrina Hobbs PROCEDURE: US ABDOMEN LIMITED INDICATIONS: RIGHT UPPER QUADRAND PAIN. NAUSEA/VOMITING. TECHNIQUE: Real-time focused scanning was performed of the abdomen, with image documentation. COMPARISON: [facility], , US ABDOMEN LIMITED, 02/14/2019, 7:09. FINDINGS: Liver demonstrates increased echotexture. No gallstones. The gallbladder wall is mildly thickened measuring 3 mm. There is , no pericholecystic fluid but positive sonographic Reyes's sign. Common bile duct is not visualized. Pancreas is not visualized. No free fluid. IMPRESSION: 1. Diffusely increased hepatic echotexture. This finding is most likely secondary to hepatic fatty infiltration although other hepatocellular disease may have a similar appearance. Recommend clinical correlation. 2. There is mild gallbladder wall thickening and positive sonographic Reyes sign. No gallstones or pericholecystic fluid collection. If clinical suspicion for acute cholecystitis persists, a HIDA scan may be obtained. Dictated by: Alphonse Banks M.D. on 04/01/2020 at 17:49 Approved by: Alphonse Banks M.D. on 04/01/2020 at 17:51 ECG Data Interpretation: 1638: Normal sinus rhythm, rate 86, CA interval 126, QTC 447. No ST elevation or ST depression. No ectopy. T-wave inversion noted in V1. EKG viewed by Dr. Bee per protocol. MDM Narrative Medical decision making narrative: 54-year-old female presents to the emergency department for bright red blood in stool after an episode of abdominal cramping and vomiting post possible food allergy. Differential includes food allergy versus gastroenteritis versus hemorrhoids versus possible colitis. Also includes insert induced GI bleed. Most likely food related allergy given patient states that this feels similar to her past food allergies. Recent NSAID use may also have contributed. No hemorrhoids seen on examination. However, patient did not have any stools or bleeding in the emergency department. She reported improved pain with her stay. She is hemodynamically stable without any concerning laboratory findings. Differential also included gallbladder etiology due to right upper quadrant pain, there was some gallbladder thickening and liver echotexture seen on CT. However, this does not require immediate surgery of any sort. Less likely acute infection given normal WBC, patient is afebrile and not tachycardic. Due to possibility of insist induced GI bleed, she was started on omeprazole. Patient was discharged with instructions to follow up with her PCP as scheduled for tomorrow. Return precautions given for new or worsening symptoms. She agrees to plan of care verbalized understanding. <Liyah Bee, DO - Last Filed: 04/07/20 09:08> Lab Data Labs: Lab Results 04/01/20 04/01/20 04/01/20 Range/Units 14:35 14:35 14:35 WBC 9.9 (4.5-11.0) X10^3/uL RBC 4.58 (4.0-5.2) X10^6/uL Hgb 12.9 (12.0-16.0) g/dL Hct 39.7 (36-46) % MCV 86.6 (80-100) fL MCH 28.1 (26-34) PG MCHC 32.5 (30-36) % RDW 13.2 (11.6-14.8) % Plt Count 466 H (150-400) X10^3/uL Neut % (Auto) 71.2 (50-75) % Lymph % (Auto) 19.8 L (25-40) % [place] % (Auto) 7.1 (3-14) % Eos % (Auto) 1.4 L (2-4) % Baso % (Auto) 0.5 (0-2) % Neut # (Auto) 7000 (0884-3268) /uL Lymph # (Auto) 2000 (9479-3498) /uL [place] # (Auto) 700 (0-900) /uL Eos # (Auto) 100 (0-450) /uL Baso # (Auto) 100 (0-100) /uL PT 12.4 (10.1-12.7) SECONDS INR 1.1 (0.9-1.3) APTT 33 (26.4-36.2) SECONDS Sodium 138 (137-145) mmol/L Potassium 3.8 (3.4-5.1) mmol/L Chloride 102 (98-107) mmol/L Carbon Dioxide 32 (22-32) mmol/L BUN 24 H (7-17) mg/dL Creatinine 0.92 (0.52-1.04) mg/dL Estimated GFR > 60.0 (>60) mL/min BUN/Creatinine Ratio 26.1 H (6-22) Glucose 115 H (70-100) mg/dL Calcium 10.3 H (8.4-10.2) mg/dL Total Bilirubin 0.7 (0.2-1.3) mg/dL AST 36 (14-36) IU/L ALT 31 (<35) IU/L Alkaline Phosphatase 102 (38-126) U/L Total Protein 9.0 H (6.3-8.2) g/dL Albumin 4.7 (3.5-5.0) g/dL Globulin 4.3 H (1.7-4.1) g/dL Albumin/Globulin Ratio 1.1 (1.0-2.8) Point of Care Testing Test Results Negative Stool Occult Blood Negative Urine Dip Bedside Urine Glucose Negative Bedside Urine Bilirubin + 1 Bedside Urine Ketone - Negative Urine Specific [place] 1.030 Bedside Urine Occult Blood - Negative Bedside Urine pH 6 Bedside Urine Protein +/- 15 Bedside Urine Urobilinogen - Negative Bedside Urine Nitrite - Negative Bedside Urine Leukocytes - Negative Esterase Discharge Plan Departure Patient Disposition: Home Clinical Impression: GI bleed Qualifiers: GI bleed type/associated pathology: unspecified gastrointestinal hemorrhage type Qualified Code(s): K92.2 - Gastrointestinal hemorrhage, unspecified Abdominal pain Qualifiers: Abdominal location: right upper quadrant Qualified Code(s): R10.11 - Right upper quadrant pain Instructions: DI for Rectal Bleeding Activity Restrictions/Additional Instructions: Thank you for entrusting me with your care today. As discussed, your laboratory work is within normal limits. We did not find any blood in your stools today. Your CT scan showed mild gallbladder wall thickening and diffusely increased hepatic echotexture, please follow-up with your primary care provider about this finding. Please take omeprazole 20 mg daily for the next 2 weeks. Follow-up with her primary care provider as discussed tomorrow. Return emergency department for any new or worsening symptoms. Prescriptions: New omeprazole 20 mg capsule,delayed release(DR/EC) 20 mg PO DAILY 14 Days Qty: 14 RF: 0 No Action citalopram 40 mg tablet 40 mg PO QPM RF: 0 cetirizine 10 mg tablet 10 mg PO DAILY RF: 0 tramadol 50 mg tablet 50 mg PO TID PRN (Reason: pain) RF: 0 pantoprazole 40 mg tablet,delayed release (DR/EC) 40 mg PO DAILY RF: 0 divalproex 500 mg tablet extended release 24 hr 2,000 mg PO QPM RF: 0 epinephrine 0.3 mg/0.3 mL auto-injector 0.3 mg IM PRN PRN (Reason: Allergic Reaction) RF: 0 diazepam 5 mg tablet 5 mg PO BID PRN (Reason: Anxiety) RF: 0 simvastatin 5 mg tablet 5 mg PO QPM RF: 0 lisinopril 10 mg tablet 10 mg PO QPM RF: 0 naproxen 500 mg tablet 500 mg PO BID PRN (Reason: pain) RF: 0 potassium chloride 10 mEq capsule, extended release 10 meq PO DAILY RF: 0 hydrocodone-acetaminophen 2.5-325 mg tablet 1 tab PO BID PRN (Reason: pain (scale score 7-10)) Qty: 7 RF: 0 ondansetron 4 mg tablet,disintegrating 4 mg PO Q8H PRN (Reason: nausea and vomiting) Qty: 10 RF: 0 Referrals: Daniel Russell DO [Primary Care Provider] - <Liyah Bee DO - Last Filed: 04/07/20 09:08> [facility] Attestation: I was immediately available in the department for consultation. Documentation has been reviewed. .
[2020-04-01] MEDS: PANTOPRAZOLE 40 MG VIAL 80 MG IV (15:09)
[2020-04-01] MEDS: SODIUM CHLORIDE 0.9% 500 ML 1000 ML IV (15:11)
[2020-04-01] MEDS: MORPHINE 2 MG/ML INJ IV (15:57)
== END 2020-04-01 18:48 | disposition home or self-care (01) ==
PROVIDERS: Emergency Medicine; Emergency Provider Nurse Practitioner; PCP Family Medicine
DX: K92.2 Gastrointestinal hemorrhage, unspecified (principal); R10.11 Right upper quadrant pain; K21.9 Gastro-esophageal reflux disease without esophagitis; I10 Essential (primary) hypertension; K85.90 Acute pancreatitis without necrosis or infection, unspecified; R19.7 Diarrhea, unspecified; E78.5 Hyperlipidemia, unspecified; E87.6 Hypokalemia; R11.2 Nausea with vomiting, unspecified
CPT/HCPCS: 36415; 76705; 80053; 81003; 81025; 82272; 85025; 85610; 85730; 93005; 93010; 96361; 96374; 96375; 99283; 99284; C9113; J2270